=== PATIENT | male | born 1935 | race Caucasian/White ===

== ENCOUNTER 2018-01-27 16:35 | Emergency (ER) | payer MEDICARE, OTHER ==
[~2018-01-27] VITALS: Ht 175.3 cm; Wt 76.2 kg
[~2018-01-27 16:35] MED LIST: ACETAMINOPHEN325 M1 GT; ACIDOPHILUS1 EAC1 GT; AFRIN30 ML; ALBUTEROL0.63 MG/3 NEB; ARICEPT5 MG GT; ATARAX GT; ATIVAN1 MG GT; BACID GT; BENADRYL25 M1 GT; BENZTROPINE MESY1 MG GT; CARAFATE1 GM/10 ML GT; CARAFATE1 GM/10 ML PO; CARBIDOPA-LEVO1 EAC5 PO; CARBIDOPA-LEVO1 EACH GT; CLARITIN-D 241 EACH GT; CLARITIN-D 241 EACH PEG; DULCOLAX SUPP10 MG RC; DUONEB INH; HYDROXYZINE HCL25 MG GT; LAMICTAL100 MG GT; LASIX20 MG GT; LORATADINE10 MG GT; MAALOX ADVANCE770 ML GT; MILK OF MA2400 MG/10 GT; MIRALAX17 GM GT; MYRBETRIQ50 MG GT; NAMENDA10 MG GT; NASAL SPRAY ORI30 ML NS; NEURONTIN100 MG GT; NYSTATIN1 EAC1 TOP; OXYBUTYNIN CHLOR5 MG GT; PANTOPRAZOLE SO40 MG PEG; PAXIL10 MG GT; PLAVIX75 MG GT; PRAVASTATIN SOD40 MG GT; PROSCAR5 MG GT; PROSTAT GT; PROTONIX40 MG GT; REGLAN5 MG GT; SEROQUEL50 MG GT; SINEMET 10-1001 EACH PEG; SINEMET 25-1001 EACH GT; SYNTHROID100 MCG GT; TAMSULOSIN HCL0.4 MG GT; TRAZODONE HCL50 MG GT; TRIHEXYPHENIDYL2 MG GT; ULTRAM 50MG50 MG GT; VALIUM5 MG GT; ZOFRAN ODT4 MG GT; ZYRTEC10 M3 GT
--- NOTE | 2018-01-27 19:00 | Diagnostic Imaging Report ---
PROCEDURE: CT ABDOMEN AND PELVIS WITHOUT CONTRAST TECHNIQUE: The abdomen and pelvis were scanned utilizing a multidetector helical scanner from the diaphragm to the lesser trochanter per physician request. Coronal and sagittal multiplanar reformations were obtained. COMPARISON: CT abdomen pelvis 05/21/2017 INDICATIONS: LEFT HIP SWELLING/PAIN FINDINGS: ABSENCE OF INTRAVENOUS CONTRAST DECREASES SENSITIVITY FOR DETECTION OF FOCAL LESIONS AND VASCULAR PATHOLOGY. LOWER THORAX: Bibasilar scarring and findings suggestive of emphysema mild component of interstitial lung disease. Moderate severe coronary artery calcifications. Heart is normal in size. HEPATOBILIARY: No focal hepatic lesions. No biliary ductal dilatation. Cholecystectomy clips. SPLEEN: No splenomegaly. PANCREAS: No focal masses or ductal dilatation. ADRENALS: No adrenal nodules. KIDNEYS/URETERS: No hydronephrosis, stones, or solid mass lesions. 0.6 cm stone in the upper pole of the right kidney is unchanged. Two 1-2 mm stones in the lower pole of the right kidney are new. 2 abutting stones for total size of 0.5 cm in the posterior interpolar region the left kidney is unchanged. New 0.1 cm stone in the lower pole of the left kidney. PELVIC ORGANS/BLADDER: Unremarkable. PERITONEUM / RETROPERITONEUM: No free air or fluid. LYMPH NODES: No lymphadenopathy. Mild aaron mesentery, which is unchanged with several lymph nodes measuring up to 0.7 cm (series 2 image 36). VESSELS: Severe atherosclerotic calcifications in aorta. Focal ectasia measuring 2.4 cm.. GI TRACT: Percutaneous gastrostomy tube in place. No distention or wall thickening. Liquid stool material throughout the entire colon, likely diarrhea. BONES AND SOFT TISSUES: Moderate degenerative use in the lower lumbar spine especially at L4-5 and L5-S1, unchanged. Right total hip arthroplasty. Unremarkable left hip. IMPRESSION: 1. Bilateral nonobstructing renal stones. 2. Liquid stool in the colon. 3. No acute abnormalities identified. Dictated by: Alphonso Monsivais M.D. on 01/27/2018 at 19:00 Electronically approved by: Alphonso Monsivais M.D. on 01/27/2018 at 19:00
--- NOTE | 2018-01-27 19:02 | Diagnostic Imaging Report ---
PROCEDURE:CT OF LT HIP WO CONTRAST COMPARISON:None. INDICATIONS:LEFT HIP SWELLING/PAIN FINDINGS:Mild degenerative changes in left hip. Diffuse osteopenia. No joint effusion. No loose joint bodies. No fractures. CONCLUSION:Mild degenerative changes in the left hip. Otherwise unremarkable left hip. Dictated by: Alphonso Monsivais M.D. on 01/27/2018 at 19:03 Electronically approved by: Alphonso Monsivais M.D. on 01/27/2018 at 19:03
--- NOTE | 2018-01-27 19:23 | Diagnostic Imaging Report ---
EXAM: Scrotal Ultrasound with Duplex INDICATION: \S\testicular swelling \S\[id number] \S\1837 \S\Y COMPARISON: CT 08/19/2016 TECHNIQUE: Transverse and longitudinal images were obtained of the scrotum with grayscale imaging, color Doppler and spectral waveform analysis. FINDINGS: Right testis: Size: 2.8 x 2 x 2.7 cm, normal in size. Echogenicity: Normal Mass/Cysts: None Left testis: Size: 3 x 2 x 2.3 cm, normal in size. Echogenicity: Normal Mass/Cysts: None Epididymis: Appearance: Normal in size without increased vascularity. Mass/Cysts: None. Mildly heterogeneous right epididymis. Extratesticular: Masses: None Hydrocele: Mild to moderate right hydrocele. Varicocele: None No evidence of hernia. Doppler: Normal arterial flow to both testes and symmetrical flow on color Doppler evaluation is seen. No evidence of testicular torsion. IMPRESSION: 1. No evidence of testicular torsion. 2. Mild to moderate right hydrocele. Signed by: Dr. Alexander Callaway MD on 01/27/2018 7:19 PM
--- NOTE | 2018-01-27 19:23 | Diagnostic Imaging Report ---
EXAM: Scrotal Ultrasound with Duplex INDICATION: \S\testicular swelling \S\[id number] \S\1837 \S\Y COMPARISON: CT 08/19/2016 TECHNIQUE: Transverse and longitudinal images were obtained of the scrotum with grayscale imaging, color Doppler and spectral waveform analysis. FINDINGS: Right testis: Size: 2.8 x 2 x 2.7 cm, normal in size. Echogenicity: Normal Mass/Cysts: None Left testis: Size: 3 x 2 x 2.3 cm, normal in size. Echogenicity: Normal Mass/Cysts: None Epididymis: Appearance: Normal in size without increased vascularity. Mass/Cysts: None. Mildly heterogeneous right epididymis. Extratesticular: Masses: None Hydrocele: Mild to moderate right hydrocele. Varicocele: None No evidence of hernia. Doppler: Normal arterial flow to both testes and symmetrical flow on color Doppler evaluation is seen. No evidence of testicular torsion. IMPRESSION: 1. No evidence of testicular torsion. 2. Mild to moderate right hydrocele. Signed by: Dr. Alexander Callaway MD on 01/27/2018 7:19 PM
[2018-01-27 19:35] LABS: BASOPHILS % 0.4 % (0.0-1.0); EOSINOPHILS # (AUTO) 0.2 (0.0-0.4); EOSINOPHILS % 2.6 % (0.0-6.0); HEMATOCRIT 45.2 % (38.2-49.6); HEMOGLOBIN 14.5 g/dL (14.0-18.0); LYMPHOCYTES # (AUTO) 1.4 (1.0-3.2); LYMPHOCYTES % 18.3 % (18.0-39.1); MEAN CORPUSCULAR HGB CONC 32.1 g/dL (31-35); MEAN CORPUSCULAR VOLUME 96.6 fL (81-99); MONOCYTES # (AUTO) 0.8 (0.2-0.8); MONOCYTES % 10.3 % (4.4-11.3); NEUTROPHILS # (AUTO) 5.1 (2.1-6.9); NEUTROPHILS % 68.3 % (38.7-80.0); PLATELET COUNT 145 x10e3/uL (140-360); RED BLOOD COUNT 4.68 x10e6/uL (4.3-5.7); RED CELL DISTRIBUTION WIDTH 13.6 % (11.7-14.4)
[2018-01-27 19:48] LABS: ANION GAP 11.7 mmol/L (8-16); BLOOD UREA NITROGEN 25 mg/dL (7-26); BUN/CREATININE RATIO 32 (6-25); CALCIUM 9.5 mg/dL (8.4-10.2); CARBON DIOXIDE 31 mmol/L (22-29); CHLORIDE 99 mmol/L (98-107); CREATININE, SERUM 0.79 mg/dL (0.72-1.25); EST GLOMERULAR FILTRATION RATE > 60 ML/MIN (60-); GLUCOSE 89 mg/dL (74-118); POTASSIUM 4.7 mmol/L (3.5-5.1); SODIUM 137 mmol/L (136-145)
[2018-01-27 19:50] LABS: BILIRUBIN,URINE NEGATIVE (NEGATIVE); CLARITY,URINE CLEAR (CLEAR); COLOR,URINE YELLOW (YELLOW); KETONES,URINE NEGATIVE (NEGATIVE); LEUKOCYTE ESTERASE ,URINE 2+ (NEGATIVE); PROTEIN,URINE DIPSTICK NEGATIVE (NEGATIVE); URINE UROBILINOGEN 0.2 mg/dL (0.2 - 1)
[2018-01-27 19:51] LABS: NITRITE,URINE POSITIVE (NEGATIVE)
[2018-01-27 20:02] LABS: BACTERIA,URINE FEW /HPF; EPITHELIAL CELLS,URINE RARE /LPF
[2018-01-27] MEDS ORDERED: CEFTRIAXONE SOD 1 GM VIAL ONE (20:43)
[2018-01-27] MEDS ORDERED: CEFTRIAXONE SOD 1 GM VIAL IM ONE (20:45)
[2018-01-27 21:06] VITALS: BP 114/67
== END 2018-01-27 21:45 | disposition home or self-care (01) ==
LOC: ER 16:35
DX: N50.89 Other specified disorders of the male genital organs (principal); B37.2 Candidiasis of skin and nail; F03.90 Unspecified dementia, unspecified severity, without behavioral disturbance, psychotic disturbance, mood disturbance, and anxiety; M25.552 Pain in left hip
CPT/HCPCS: 36415; 73700; 74176; 76870; 80048; 81001; 85025; 93970; 93976; 99284; J0696

== ENCOUNTER → 2018-05-02 | Outpatient (CLI) | payer MEDICARE, OTHER ==
--- NOTE | 2018-05-02 17:30 | Diagnostic Imaging Report ---
EXAM: CT Abdomen and Pelvis WITHOUT contrast INDICATION: \S\[id number] \S\1534 \S\RENAL CALCULUS COMPARISON: CT dated 01/27/2018 TECHNIQUE: Abdomen and pelvis were scanned utilizing a multidetector helical scanner from the lung base to the pubic symphysis without administration of IV contrast. Absence of intravenous contrast decreases sensitivity for detection of focal lesions and vascular pathology. Coronal and sagittal reformations were obtained. Renal stone protocol was performed. IV CONTRAST: None ORAL CONTRAST: Water COMPLICATIONS: None RADIATION DOSE: Total DLP: 642.8 mGy*cm Estimated effective dose: (DLP x 0.015 x size factor) mSv CTDIvol has been reviewed. It is below the limits set by the Radiation Protocol Committee (RPC). FINDINGS: LINES and TUBES: Percutaneous gastrostomy tube in place. LOWER THORAX: Atherosclerotic calcification of the visualized coronary arteries. Increased peripheral reticulonodular lung markings, likely fibrotic changes. HEPATOBILIARY: Calcified granulomas. Otherwise unenhanced liver is unremarkable. No biliary ductal dilation. GALLBLADDER: Surgically absent. SPLEEN: No splenomegaly. PANCREAS: No focal masses or ductal dilatation. Fatty involution of the pancreas. ADRENALS: No adrenal nodules KIDNEYS/URETERS: No hydronephrosis. No cystic or solid mass lesions. 7 mm right superior pole calculus. There are also punctate right inferior pole calculi (series 41, images 66 and 67). Punctate left inferior pole calculus (401/74). 4 mm left midpole calculus. GI TRACT: No abnormal distention, wall thickening, or evidence of bowel obstruction. Appendix is normal. Large colonic stool burden, suggestive of constipation. PELVIC ORGANS/BLADDER: Unremarkable. Streak artifacts from right hip prosthesis limits evaluation. LYMPH NODES: No lymphadenopathy. Nonspecific subcentimeter retroperitoneal lymph nodes. For example 0.9 cm aortocaval lymph node (series 3, image 91). VESSELS: There is moderate atherosclerotic disease in the aorta and major arterial branches. Focally ectatic areas of infrarenal abdominal aorta measuring 2.3 cm (series 3, image 107) and 2.5 cm (series 3, image 119). PERITONEUM / RETROPERITONEUM: No free air or fluid. BONES: Generalized demineralization limits evaluation. Right hip arthroplasty. Degenerative changes of spine. SOFT TISSUES: Unremarkable. Bilateral gynecomastia. IMPRESSION: 1. Bilateral subcentimeter nonobstructive renal calculi, not significantly changed from prior exam. Signed by: Dr. Alexander Callaway MD on 05/02/2018 5:27 PM
== END ==
LOC: CT 15:23
PROVIDERS: ATTEND Urology
DX: N20.0 Calculus of kidney (principal); N20.1 Calculus of ureter
CPT/HCPCS: 74176

== ENCOUNTER → 2018-08-05 | Day surgery (SDC) | payer MEDICARE ==
[~2018-08-05] MED LIST changes: +BENADRYL25 M1; +DEXAMETHASONE SOD PHOS INJ 4 MG/ML VIAL ONE; +EPHEDRINE SULFATE INJ 50 MG/10 ML SYR ONE; +FENTANYL CITRATE/PF 100MCG/2 ML INJ ONE; +GENTAMICIN 80MG/NS 100 ML 200 ML IV ONE; +LIDOCAINE HCL 2% LOCAL INJ 5 ML SDV VIAL INJ ONE; +ONDANSETRON HCL INJ 2 MG/ML VIAL ONE; +PRAVASTATIN SOD40 MG; +PROPOFOL IV EMULSION 10 MG/ML 20 ML VIAL ONE; +SEVOFLURANE INHAL SOLN 250 ML PEN BTL ONE; +TERAZOSIN HCL5 MG PO; +TYLENOL
[2018-08-05 10:25] LABS: BASOPHILS % 0.6 % (0.0-1.0); EOSINOPHILS # (AUTO) 0.2 (0.0-0.4); EOSINOPHILS % 3.3 % (0.0-6.0); HEMATOCRIT 45.6 % (38.2-49.6); HEMOGLOBIN 14.5 g/dL (14.0-18.0); LYMPHOCYTES % 19.7 % (18.0-39.1); MEAN CORPUSCULAR HEMOGLOBIN 30.8 pg (28-32); MEAN CORPUSCULAR HGB CONC 31.8 g/dL (31-35); MEAN CORPUSCULAR VOLUME 96.8 fL (81-99); MONOCYTES # (AUTO) 0.6 (0.2-0.8); NEUTROPHILS # (AUTO) 3.3 (2.1-6.9); NEUTROPHILS % 64.2 % (38.7-80.0); PLATELET COUNT 113 x10e3/uL (140-360); RED BLOOD COUNT 4.71 x10e6/uL (4.3-5.7); RED CELL DISTRIBUTION WIDTH 14.9 % (11.7-14.4)
[2018-08-05 10:49] LABS: ANION GAP 12.4 mmol/L (8-16); BLOOD UREA NITROGEN 23 mg/dL (7-26); BUN/CREATININE RATIO 29 (6-25); CALCIUM 9.8 mg/dL (8.4-10.2); CARBON DIOXIDE 29 mmol/L (22-29); CHLORIDE 104 mmol/L (98-107); CREATININE, SERUM 0.79 mg/dL (0.72-1.25); EST GLOMERULAR FILTRATION RATE > 60 ML/MIN (60-); GLUCOSE 103 mg/dL (74-118); POTASSIUM 4.4 mmol/L (3.5-5.1); SODIUM 141 mmol/L (136-145)
--- NOTE | 2018-08-05 12:37 | Diagnostic Imaging Report ---
PROCEDURE: Frontal and lateral views of the chest. COMPARISON: None. INDICATIONS: PRE OP FOR ESWL FINDINGS: Lines/tubes: None. Lungs: Low lung volumes. Bilateral perihilar and interstitial opacities. Patchy left basilar opacity. Pleura: There is no pleural effusion or pneumothorax. Heart and mediastinum: Mild enlargement of the cardiomediastinal silhouette. Bones: No acute bony abnormality. IMPRESSION: Findings consistent with moderate pulmonary interstitial edema. Patchy opacity at the left lung base, likely atelectasis. Dictated by: KAMARI SUÁREZ M.D. on 08/05/2018 at 11:06 Electronically approved by: KAMARI SUÁREZ M.D. on 08/05/2018 at 11:06
--- NOTE | 2018-08-05 12:37 | Diagnostic Imaging Report ---
PROCEDURE:X-RAY ABDOMEN - KUB COMPARISON: CT Abdomen/Pelvis 05/02/18. INDICATIONS:PRE OP ESWL FINDINGS: Bilateral renal stones are noted measuring up to 7 mm on the right and 4 mm on the left, better characterized on CT from 05/02/18. Non-obstructive bowel gas pattern. Gastrostomy tube is noted. Status post cholecystectomy. Diffuse osteopenia. Partially seen right total hip arthroplasty. Severe left hip degenerative changes. No acute bony findings. CONCLUSION: Bilateral renal stones measuring up to 7 mm on the right. Dictated by: KAMARI SUÁREZ M.D. on 08/05/2018 at 11:16 Electronically approved by: KAMARI SUÁREZ M.D. on 08/05/2018 at 11:16
[2018-08-05 14:45] VITALS: BP 152/94
--- OUTSIDE RECORDS SUMMARY | 2018-08-16 11:07 | XMS REPORT ---
Author Author [facility] Address Unknown Phone Unavailable Care Team Providers Care F[employer] Dispenser Name Role Phone SIMRAN BUTLER Unavailable Unavailable SONIA JENKINS Unavailable Unavailable Problems This patient has no known problems. Allergies, Adverse Reactions, Alerts This patient has no known allergies or adverse reactions. Medications This patient has no known medications. Results Test Description Test Time Test Comments Text Results Atomic Results Result Comments ABDOMEN-1VIEW (KUB) 2018-08-05 11:16:00 [place] [address] Patient Name: FER MYERS MR #: [id number] : 1935 Age/Sex: 83/M Req #: [id number] Adm Physician: Ordered by: SIMRAN BUTLER MD Report #: [id number] Location: OR Room/Bed: Procedure: [id number] DX/ABDOMEN-1VIEW (KU) Exam Date: 08/05/18 Exam Time: 1009 REPORT STATUS: Signed PROCEDURE: X-RAY ABDOMEN - KUB COMPARISON: CT Abdomen/Pelvis 05/02/18. INDICATIONS: PRE OP ESWL FINDINGS: Bilateral renal stones are noted measuring up to 7 mm on the right and 4 mm on the left, better characterized on CT from 05/02/18. Non-obstructive bowel gas pattern. Gastrostomy tube is noted. Status post cholecystectomy. Diffuse osteopenia. Partially seen right total hip arthroplasty. Severe left hip degenerative changes. No acute bony findings. CONCLUSION: Bilateral renal stones measuring up to 7 mm on the right. Dictated by: KAMARI SUÁREZ M.D. on 08/05/2018 at 11:16 Electronically approved by: KAMARI SUÁREZ M.D. on 08/05/2018 at 11:16 Dictated By: KAMARI SUÁREZ MD 1116 Transcribed By: MIYA on 08/05/18 1116 COPY TO: SIMRAN BUTLER MD CHEST 2 VIEWS 2018-08-05 11:06:00 [place] [address] Patient Name: FER MYERS MR #: [id number] : 1935 Age/Sex: 83/M Req #: [id number] Adm Physician: Ordered by: SIMRAN BUTLER MD Report #: [id number] Location: OR Room/Bed: Procedure: [id number] DX/CHEST 2 VIEWS Exam Date: 08/05/18 Exam Time: 1009 REPORT STATUS: Signed PROCEDURE: Frontal and lateral views of the chest. COMPARISON: None. INDICATIONS: PRE OP FOR ESWL FINDINGS: Lines/tubes: None. Lungs: Low lung volumes. Bilateral perihilar and interstitial opacities. Patchy left basilar opacity. Pleura: There is no pleural effusion or pneumothorax. Heart and mediastinum: Mild enlargement of the cardiomediastinal silhouette. Bones: No acute bony abnormality. IMPRESSION: Findings consistent with moderate pulmonary interstitial edema. Patchy opacity at the left lung base, likely atelectasis. Dictated by: KAMARI SUÁREZ M.D. on 08/05/2018 at 11:06 Electronically approved by: KAMARI SUÁREZ M.D. on 08/05/2018 at 11:06 Dictated By: KAMARI SUÁREZ MD 05 Transcribed By: MIYA on 08/05/181105 COPY TO: SIMRAN BUTLER MD CT ABDOMEN/PELVIS WO 2018-05-02 17:09:00 [place] [address] Patient Name: FER MYERS MR #: [id number] : 1935 Age/Sex: 83/M Req #: [id number] Adm Physician: Ordered by: SIMRAN BUTLER MD Report #: [id number] Location: CT Room/Bed: Procedure: [id number] CT/CT ABDOMEN/PELVIS WO Exam Date: 05/02/18 Exam Time: 1534 REPORT STATUS: Signed EXAM: CT Abdomen and Pelvis WITHOUT contrast INDICATION: COMPARISON: CT dated 01/27/2018 TECHNIQUE: Abdomen and pelvis were scanned utilizing a multidetector helical scanner from the lung base to the pubic symphysis without administration of IV contrast. Absence of intravenous contrast decreases sensitivity for detection of focal lesions and vascular pathology. Coronal and sagittal reformations were obtained. Renal stone protocol was performed. IV CONTRAST: None ORAL CONTRAST: Water COMPLICATIONS: None RADIATION DOSE: Total DLP: 642.8 mGy*cm Estimated effective dose: (DLP x 0.015 x size factor) mSv CTDIvol has been reviewed. It is below the limits set by the Radiation Protocol Committee (RPC). FINDINGS: LINES and TUBES: Percutaneous gas trostomy tube in place. LOWER THORAX: Atherosclerotic calcification of the visualized coronary arteries. Increased peripheral reticulonodular lung markings, likely fibrotic changes. HEPATOBILIARY: Calcified granulomas. Otherwise unenhanced liver is unremarkable. No biliary ductal dilation. GALLBLADDER: Surgically absent. SPLEEN: No splenomegaly. PANCREAS: No focal masses or ductal dilatation. Fatty involution of the pancreas. ADRENALS: No adrenal nodules KIDNEYS/URETERS: No hydronephrosis. No cystic or solid mass lesions. 7 mm right superior pole calculus. There are also punctate right inferior pole calculi (series 41, images 66 and 67). Punctate left inferior pole calculus (401/74). 4 mm left midpole calculus. GI TRACT: No abnormal distention, wall thickening, or evidence of bowel obstruction. Appendix is normal. Large colonic stool burden, suggestive of constipation. PELVIC ORGANS/BLADDER: Unremarkable. Streak artifacts from right hip prosthesis limits evaluation. LYMPH NODES: No lymphadenopathy. Nonspecific subcentimeter retroperitoneal lymph nodes. For example 0.9 cm aortocaval lymph node (series 3, image 91). VESSELS: There is moderate atherosclerotic disease in the aorta and major arterial branches. Focally ectatic areas of infrarenal abdominal aorta measuring 2.3 cm (series 3, image 107) and 2.5 cm (series 3, image 119). PERITONEUM / RETROPERITONEUM: No free air or fluid. BONES: Generalized demineralization limits evaluation. Right hip arthroplasty. Degenerative changes of spine. SOFT TISSUES: Unremarkable. Bilateral gynecomastia. IMPRESSION: 1. Bilateral subcentimeter nonobstructive renal calculi, not significantly changed from prior exam. Signed by: Dr. Alexander Raman MD on 05/02/2018 5:27 PM Dictated By: ALEXANDER RAMAN MD 26 Transcribed By: LISETTE on 05/02/181726 COPY TO: SIMRAN BUTLER MD CT ABDOMEN/PELVIS [place] [address] Patient Name: FER MYERS MR #: [id number] : 1935 Age/Sex: 83/M Req #: [id number] Adm Physician: Ordered by: SONIA JENKINS MD Report #: [id number] Location: ER Room/Bed: Procedure: [id number] CT/CT ABDOMEN/PELVIS WO Exam Date: 01/27/18 Exam Time: 1820 REPORT STATUS: Signed PROCEDURE: CT ABDOMEN AND PELVIS WITHOUT CONTRAST TECHNIQUE: The abdomen and pelvis were scanned utilizing a multidetector helical scanner from the diaphragm to the lesser trochanter per physician request. Coronal and sagittal multiplanar reformations were obtained. COMPARISON: CT abdomen pelvis 05/21/2017 INDICATIONS: LEFT HIP SWELLING/PAIN FINDINGS: ABSENCE OF INTRAVENOUS CONTRAST DECREASES SENSITIVITY FOR DETECTION OF FOCAL LESIONS AND VASCULAR PATHOLOGY. LOWER THORAX: Bibasilar scarring and findings suggestive of emphysema mild component of interstitial lung disease. Moderate severe coronary artery calcifications. Heart is normal in size. HEPATOBILIARY: No focal hepatic lesions. No biliary ductal dilatation. Cholecystectomy clips. SPLEEN: No splenomegaly. PANCREAS: No focal masses or ductal dilatation. ADRENALS: No adrenal nodules. KIDNEYS/URETERS: No hydronephrosis, stones, or solid mass lesions. 0.6 cm stone in the upper pole of the right kidney is unchanged. Two 1-2 mm stones in the lower pole of the right kidney are new. 2 abutting stones for total size of 0.5 cm in the posterior interpolar region the left kidney is unchanged. New 0.1 cm stone in the lower pole of the left kidney. PELVIC ORGANS/BLADDER: Unremarkable. PERITONEUM / RETROPERITONEUM: No free air or fluid. LYMPH NODES: No lymphadenopathy. Mild aaron mesentery, which is unchanged with several lymph nodes measuring up to 0.7 cm (series 2 image 36). VESSELS: Severe atherosclerotic calcifications in aorta. Focal ectasia measuring 2.4 cm.. GI TRACT: Percutaneous gastrostomy tube in place. No distention or wall thickening. Liquid stool material throughout the entire colon, likely diarrhea. BONES AND SOFT TISSUES: Moderate degenerative use in the lower lumbar spine especially at L4-5 and L5-S1, unchanged. Right total hip arthroplasty. Unremarkable left hip. IMPRESSION: 1. Bilateral nonobstructing renal stones. 2. Liquid stool in the colon. 3. No acute abnormalities identified. Dictated by: Yakelin Seymour M.D. on 01/27/2018 at 19:00 Electronically approved by: Yakelin Seymour M.D. on 01/27/2018 at 19:00 Dictated By: YAKELIN SEYMOUR MD 99 Transcribed By: MIYA on 01/27/181899 COPY TO: SONIA JENKINS MD CT HIP LEFT WO [place] [address] Patient Name: FER MYERS MR #: [id number] : 1935 Age/Sex: 83/M Req #: [id number] Adm Physician: Ordered by: SONIA JENKINS MD Report #: [id number] Location: ER Room/Bed: Procedure: [id number] CT/CT HIP LEFT WO Exam Date: 01/27/18 Exam Time: 1820 REPORT STATUS: Signed PROCEDURE: CT OF LT HIP WO CONTRAST COMPARISON: None. INDICATIONS: LEFT HIP SWELLING/PAIN FINDINGS: Mild degenerative changes in left hip. Diffuse osteopenia. No joint effusion. No loose joint bodies. No fractures. CONCLUSION: Mild degenerative changes in the left hip. Otherwise unremarkable left hip. Dictated by: Yakelin Seymour M.D. on 01/27/2018 at 19:03 Electronically approved by: Yakelin Seymour M.D. on 01/27/2018 at 19:03 Dictated By: YAKELIN SEYMOUR MD 02 Transcribed By: MIYA on 01/27/181902 COPY TO: SONIA JENKINS MD US TESTICULAR [place] [id number] [place] [address] Patient Name: FER MYERS MR #: [id number] : 1935 Age/Sex: 83/M Req #: [id number] Adm Physician: Ordered by: SONIA JENKINS MD Report #: [id number] Location: ER Room/Bed: Procedure: [id number] US/US TESTICULAR Exam Date: 01/27/18 Exam Time: 1837 REPORT STATUS: Signed EXAM: Scrotal Ultrasound with Duplex INDICATION: COMPARISON: CT 08/19/2016 TECHNIQUE: Transverse and longitudinal images were obtained of the scrotum with grayscale imaging, color Doppler and spectral waveform analysis. FINDINGS: Right testis: Size: 2.8 x 2 x 2.7 cm, normal in size. Echogenicity: Normal Mass/Cysts: None Left testis: Size: 3 x 2 x 2.3 cm, normal in size. Echogenicity: Normal Mass/Cysts: None Epididymis: Appearance: Normal in size without increased vascularity. Mass/Cysts: None. Mildly heterogeneous right epididymis. Extratesticular: Masses: None Hydrocele: Mild to moderate right hydrocele. Varicocele: None No evidence of hernia. Doppler: Normal arterial flow to both testes and symmetrical flow on color Doppler evaluation is seen. No evidence of testicular torsion. IMPRESSION: 1. No evidence of testicular torsion. 2. Mild to moderate right hydrocele. Signed by: Dr. Alexander Raman MD on 01/27/2018 7:19 PM Dictated By: ALEXANDER RAMAN MD 18 Transcribed By: LISETTE on 01/27/181918 COPY TO: SONIA JENKINS MD US TESTICULAR DOPPLER LTD [place] [id number] [place] [address] Patient Name: FER MYERS MR #: [id number] : 1935 Age/Sex: 83/M Req #: [id number] Adm Physician: Ordered by: SONIA JENKINS MD Report #: [id number] Location: ER Room/Bed: Procedure: [id number] US/US TESTICULAR DOPPLER LTD Exam Date: 01/27/18 Exam Time: 1837 REPORT STATUS: Signed EXAM: Scrotal Ultrasound with Duplex INDICATION: COMPARISON: CT 08/19/2016 TECHNIQUE: Transverse and longitudinal images were obtained of the scrotum with grayscale imaging, color Doppler and spectral waveform analysis. FINDINGS: Right testis: Size: 2.8 x 2 x 2.7 cm, normal in size. Echogenicity: Normal Mass/Cysts: None Left testis: Size: 3 x 2 x 2.3 cm, normal in size. Echogenicity: Normal Mass/Cysts: None Epididymis: Appearance: Normal in size without increased vascularity. Mass/Cysts: None. Mildly heterogeneous right epididymis. Extratesticular: Masses: None Hydrocele: Mild to moderate right hydrocele. Varicocele: None No evidence of hernia. Doppler: Normal arterial flow to both testes and symmetrical flow on color Doppler evaluation is seen. No evidence of testicular torsion.
--- NOTE | 2018-09-13 02:44 | Operative Report ---
DATE OF PROCEDURE: August 05, 2018 PREOPERATIVE DIAGNOSIS: Nephrolithiasis. POSTOPERATIVE DIAGNOSIS: Nephrolithiasis. OPERATIONS PERFORMED 1. Staged right-sided extracorporeal shock wave lithotripsy. 2. Supervision of fluoroscopy. No radiologist present. ANESTHESIA: General. COMPLICATIONS: None. CLINICAL SUMMARY: Destin Carroll is an 83-year-old man with recurrent urolithiasis, who is brought for the above procedures. Family is aware of the risks of bleeding, infection, injury to adjacent structures, need for additional procedures and elected to proceed. OPERATIVE PROCEDURE IN DETAIL: Informed consent was verified. Destin Carroll was properly identified, taken to the operating room, placed on the lithotripsy table in supine position. Anesthesia was uneventfully begun. The right lower pole and right upper pole stones were localized with biplanar fluoroscopy. Total of 3000 shocks were delivered with fragmentation noted. The patient was then uneventfully reversed from anesthesia and taken to recovery room in stable condition. There were no complications during the procedure. He tolerated the procedure well. Explicit postoperative instructions were given. We will return the patient to the operating room for another ESWL, left versus right. Job#: [id number] ARABELLA
== END | disposition home or self-care (01) ==
LOC: OR 09:36
PROVIDERS: ATTEND Urology
DX: N20.0 Calculus of kidney (principal); N40.0 Benign prostatic hyperplasia without lower urinary tract symptoms; R32 Unspecified urinary incontinence; R56.9 Unspecified convulsions; F03.90 Unspecified dementia, unspecified severity, without behavioral disturbance, psychotic disturbance, mood disturbance, and anxiety; G20 Parkinson's disease; I50.9 Heart failure, unspecified; E03.9 Hypothyroidism, unspecified; K21.9 Gastro-esophageal reflux disease without esophagitis; K44.9 Diaphragmatic hernia without obstruction or gangrene; R00.1 Bradycardia, unspecified; K27.9 Peptic ulcer, site unspecified, unspecified as acute or chronic, without hemorrhage or perforation; Z74.01 Bed confinement status; Z88.8 Allergy status to other drugs, medicaments and biological substances; Z88.6 Allergy status to analgesic agent; Z91.011 Allergy to milk products; Z79.02 Long term (current) use of antithrombotics/antiplatelets; Z86.73 Personal history of transient ischemic attack (TIA), and cerebral infarction without residual deficits; Z87.01 Personal history of pneumonia (recurrent); Z87.891 Personal history of nicotine dependence
CPT/HCPCS: 36415; 50590; 71046; 74018; 80048; 83970; 84550; 85025; 93005; J1100; J1580; J2001; J2405

== ENCOUNTER → 2018-11-16 | Day surgery (SDC) | payer MEDICARE ==
[~2018-11-16] MED LIST changes: +BELLADONNA/OPIUM 30 MG SUPP RC ONE; -DEXAMETHASONE SOD PHOS INJ 4 MG/ML VIAL ONE; -EPHEDRINE SULFATE INJ 50 MG/10 ML SYR ONE; +FAMOTIDINE20 MG PO; -FENTANYL CITRATE/PF 100MCG/2 ML INJ ONE; +GENTAMICIN 80MG/NS 100 ML 100 ML IV ONE; -GENTAMICIN 80MG/NS 100 ML 200 ML IV ONE; +IOPAMIDOL 610MG/1ML 300 MG/ML VIAL IV ONE; +LACTULOSE20 GM/30 M PO; +METOCLOPRAM5 MG/5 ML; +MIRALAX17 GM; -ONDANSETRON HCL INJ 2 MG/ML VIAL ONE; +ONDANSETRON ODT8 MG; +PIPER-TAZ 3.375 GM 50 ML ONE; +PROBIOTIC & AC1 EACH; +ULTRAM50 MG PO
[2018-11-16 05:39] LABS: BASOPHILS # (AUTO) 0.1 (0.0-0.1); BASOPHILS % 0.9 % (0.0-1.0); EOSINOPHILS # (AUTO) 0.3 (0.0-0.4); EOSINOPHILS % 4.8 % (0.0-6.0); HEMATOCRIT 42.7 % (38.2-49.6); HEMOGLOBIN 13.9 g/dL (14.0-18.0); LYMPHOCYTES # (AUTO) 1.8 (1.0-3.2); MEAN CORPUSCULAR HEMOGLOBIN 30.3 pg (28-32); MEAN CORPUSCULAR HGB CONC 32.6 g/dL (31-35); MONOCYTES # (AUTO) 0.6 (0.2-0.8); MONOCYTES % 9.9 % (4.4-11.3); NEUTROPHILS # (AUTO) 3.2 (2.1-6.9); NEUTROPHILS % 54.1 % (38.7-80.0); PLATELET COUNT 155 x10e3/uL (140-360); RED BLOOD COUNT 4.59 x10e6/uL (4.3-5.7); RED CELL DISTRIBUTION WIDTH 15.3 % (11.7-14.4)
[2018-11-16 05:54] LABS: ANION GAP 13.2 mmol/L (8-16); BLOOD UREA NITROGEN 30 mg/dL (7-26); BUN/CREATININE RATIO 39 (6-25); CALCIUM 8.8 mg/dL (8.4-10.2); CARBON DIOXIDE 31 mmol/L (22-29); CHLORIDE 99 mmol/L (98-107); CREATININE, SERUM 0.76 mg/dL (0.72-1.25); EST GLOMERULAR FILTRATION RATE > 60 ML/MIN (60-); GLUCOSE 88 mg/dL (74-118); POTASSIUM 4.2 mmol/L (3.5-5.1); SODIUM 139 mmol/L (136-145)
--- NOTE | 2018-11-16 07:30 | Diagnostic Imaging Report ---
Exam: KUB-2 views. Clinical History: Preoperative. Comparison: KUB 08/05/[address] abdomen/pelvis 05/02/2018. Findings: Bilateral renal stones are noted measuring up to 7 mm on the right and 4 mm on the left, better characterized on CT from 05/02/2018. Nonobstructive bowel gas pattern. Gastrostomy tube is noted. Status post cholecystectomy. There is diffuse osteopenia. Partially seen findings from right total hip arthroplasty. Severe left hip degenerative changes. No acute bony findings. Impression: Similar appearance of bilateral renal stones, measuring up to 7 mm on the right. Signed by: Dr. Aminah Burdick MD on 11/16/2018 7:26 AM
[2018-11-16 10:30] VITALS: BP 120/57
--- NOTE | 2018-11-16 12:45 | Operative Report ---
DATE OF PROCEDURE: November 16, 2018 PREOPERATIVE DIAGNOSES 1. Left nephrolithiasis. 2. Urinary tract infections. POSTOPERATIVE DIAGNOSES 1. Left nephrolithiasis. 2. Urinary tract infections. 3. Bladder stones. OPERATIONS PERFORMED: Note these are all staged procedures as part of a multistage, multistep process of managing the patient's urolithiasis: 1. Left-sided extracorporeal shock-wave lithotripsy (separate procedure performed for the nephrolithiasis). 2. Cystourethroscopy with bilateral ureteral catheterization and retrograde ureteropyelography (separate procedure performed for the urinary tract infections). 3. Interpretation of retrograde ureteropyelography. 4. Cystourethroscopy with cystolitholapaxy (separate procedure performed for the patient's bladder stones). ANESTHESIA: General. COMPLICATIONS: None. CLINICAL SUMMARY: Destin Carroll is an 83-year-old man with urinary tract infections and recurrent stones. The patient underwent a right ESWL several months ago. On KUB today we cannot visualize those stones. He has residual stones that we did not previously treat on the left-hand side, and he is brought for management. The family is aware of the risks of bleeding, infection, injury to adjacent structures, need for additional procedures and elected to proceed. OPERATIVE PROCEDURE IN DETAIL: Informed consent was verified. Destin Carroll was properly identified, taken to the operating room and placed on the lithotripsy table in the supine position. Anesthesia was uneventfully begun. The patient's left lower pole nephrolithiasis was localized with biplanar fluoroscopy. Total of 3000 shocks were delivered with excellent fragmentation. The patient was then carefully and gently repositioned in a modified dorsal lithotomy position with the limitations of his contractures. His genitalia were prepared and draped in the usual sterile fashion. The 22.5-Grenadian cystoscope sheath with the visual obturator in place was atraumatically inserted in the patient's urethra. It was guided down the unremarkable urethra, past a normal sphincteric region, through the prostate bed which was wide open status post the previous transurethral resection procedure that we performed in the past. We entered the patient's bladder which exhibited diffuse small stones throughout the bladder and some debris as well. No suspicious mucosal lesions were identified. We utilized a grasper to fragment some of the larger of the stone fragments. Then we flushed out all the stone debris. The bladder now was completely clean of any debris and any stone material. There were no suspicious lesions. There were no tumors. A ureteral catheter was used to cannulate each ureter, and retrograde ureteropyelograms were performed. Interpretation of retrograde ureteropyelography: Contrast was instilled in a retrograde fashion bilaterally. There was no hydronephrosis present. The left side exhibited some filling defects in the lower pole region where we performed the lithotripsy as we expect to have blood clots and stone debris following ESWL. Unobstructed drainage was observed bilaterally fluoroscopically. The patient's bladder was drained. The cystoscope was withdrawn. Belladonna and opium suppository was placed revealing a prostate that was at least 40 grams in size, smooth and nonfluctuant without any nodules. Patient was then uneventfully reversed from anesthesia and taken to the recovery room in stable condition. There were no complications. The patient tolerated the procedure well. Explicit postoperative instructions were given. We will follow the patient up in the office. Job#: [id number]
== END | disposition home or self-care (01) ==
LOC: OR 05:06
PROVIDERS: ATTEND Urology
DX: N20.0 Calculus of kidney (principal); N39.0 Urinary tract infection, site not specified; N21.0 Calculus in bladder; G20 Parkinson's disease; F02.80 Dementia in other diseases classified elsewhere, unspecified severity, without behavioral disturbance, psychotic disturbance, mood disturbance, and anxiety; I50.9 Heart failure, unspecified; E03.9 Hypothyroidism, unspecified; K21.9 Gastro-esophageal reflux disease without esophagitis; K27.9 Peptic ulcer, site unspecified, unspecified as acute or chronic, without hemorrhage or perforation; Z88.6 Allergy status to analgesic agent; Z88.8 Allergy status to other drugs, medicaments and biological substances; Z91.09 Other allergy status, other than to drugs and biological substances; Z93.1 Gastrostomy status; Z74.01 Bed confinement status; Z79.02 Long term (current) use of antithrombotics/antiplatelets; Z87.01 Personal history of pneumonia (recurrent); Z86.73 Personal history of transient ischemic attack (TIA), and cerebral infarction without residual deficits; Z87.891 Personal history of nicotine dependence
CPT/HCPCS: 36415; 50590; 52317; 74018; 80048; 85025; C1758; J1580; J2001; J2543; J2704; Q9967

== ENCOUNTER → 2019-03-15 | Outpatient (CLI) | payer MEDICARE, OTHER ==
[~2019-03-15] MED LIST changes: -BELLADONNA/OPIUM 30 MG SUPP RC ONE; -GENTAMICIN 80MG/NS 100 ML 100 ML IV ONE; -IOPAMIDOL 610MG/1ML 300 MG/ML VIAL IV ONE; -LIDOCAINE HCL 2% LOCAL INJ 5 ML SDV VIAL INJ ONE; -PIPER-TAZ 3.375 GM 50 ML ONE; -PROPOFOL IV EMULSION 10 MG/ML 20 ML VIAL ONE; -SEVOFLURANE INHAL SOLN 250 ML PEN BTL ONE
--- NOTE | 2019-03-15 08:55 | Diagnostic Imaging Report ---
Abdomen, 2 views. History: Renal stones. Comparison: 11/16/2018 KUB and 05/02/2018 CT abdomen and pelvis Findings: The intestinal gas pattern is nonobstructive. G-tube overlies the left upper quadrant. There no masses. Calcification overlies the upper pole of the right kidney (any stones present are better visualized on the prior CT). There is extensive degenerative joint space narrowing involving the left hip. Right hip prosthesis partially visualized. IMPRESSION: No acute abdominal abnormality. Signed by: Dr. Jasper Goldstein DO on 03/15/2019 8:52 AM
== END ==
LOC: RAD 08:03
PROVIDERS: ATTEND Urology
DX: N20.0 Calculus of kidney (principal)
CPT/HCPCS: 74018

== ENCOUNTER 2020-01-30 12:23 | Inpatient (IN) | payer MEDICARE ==
[~2020-01-30] VITALS: Ht 175.3 cm; Wt 69.9 kg
[2020-01-30] VITALS (22 sets, daily range): BP systolic 76–172; BP diastolic 41–141
[2020-01-30] MEDS ORDERED: SODIUM CHLORIDE 0.9% 1000ML 1,000 ML IV STA (12:30)
[2020-01-30] MEDS ORDERED: DILTIAZEM HCL 5 MG/ML 5 ML VIAL IV STA ×3 (12:47→13:50)
[2020-01-30] MEDS ORDERED: DILTIAZEM HCL VIAL 5 ML ONE (13:07)
--- NOTE | 2020-01-30 13:07 | NUR ---
second dose 2.5mg cardizeme iv push, er md in room with patient at this time.
[2020-01-30 13:19] LABS: CLARITY,URINE CLEAR (CLEAR); COLOR,URINE YELLOW (YELLOW); LEUKOCYTE ESTERASE ,URINE NEGATIVE (NEGATIVE); NITRITE,URINE NEGATIVE (NEGATIVE)
[2020-01-30 13:20] LABS: BILIRUBIN,URINE NEGATIVE (NEGATIVE); KETONES,URINE NEGATIVE (NEGATIVE); PROTEIN,URINE DIPSTICK TRACE (NEGATIVE); URINE UROBILINOGEN 0.2 mg/dL (0.2 - 1)
[2020-01-30 13:20] LABS: BASOPHILS # (AUTO) 0.1 (0.0-0.1); BASOPHILS % 0.3 % (0.0-1.0); EOSINOPHILS # (AUTO) 1.4 (0.0-0.4); EOSINOPHILS % 7.3 % (0.0-6.0); HEMATOCRIT 38.5 % (38.2-49.6); HEMOGLOBIN 12.7 g/dL (14.0-18.0); LYMPHOCYTES # (AUTO) 0.7 (1.0-3.2); LYMPHOCYTES % 3.6 % (18.0-39.1); MEAN CORPUSCULAR HEMOGLOBIN 32.2 pg (28-32); MEAN CORPUSCULAR VOLUME 97.7 fL (81-99); MONOCYTES # (AUTO) 0.9 (0.2-0.8); MONOCYTES % 4.6 % (4.4-11.3); NEUTROPHILS # (AUTO) 15.5 (2.1-6.9); NEUTROPHILS % 83.5 % (38.7-80.0); PLATELET COUNT 159 x10e3/uL (140-360); RED BLOOD COUNT 3.94 x10e6/uL (4.3-5.7); RED CELL DISTRIBUTION WIDTH 15.9 % (11.7-14.4)
[2020-01-30 13:23] LABS: INR 1.12; PARTIAL THROMBOPLASTIN TIME 33.1 seconds (23.8-35.5); PROTHROMBIN TIME 15.1 seconds (11.9-14.5)
[2020-01-30 13:26] LABS: ALBUMIN 2.3 g/dL (3.5-5.0); ALBUMIN/GLOBULIN RATIO 0.6 (0.8-2.0); ANION GAP 14.1 mmol/L (8-16); CREATININE, SERUM 1.19 mg/dL (0.72-1.25); MAGNESIUM 2.1 MG/DL (1.3-2.1); POTASSIUM 4.1 mmol/L (3.5-5.1)
[2020-01-30 13:33] LABS: BACTERIA,URINE FEW /HPF; EPITHELIAL CELLS,URINE FEW /LPF; RBC,URINE 0-5 /HPF (0-5)
[2020-01-30 13:34] LABS: TRANSITIONAL EPI CELLS,URINE FEW
[2020-01-30 13:46] LABS: CREATINE KINASE MB 1.6 ng/mL (0-5.0); THYROID STIMULATING HORMONE 1.553 uIU/mL (0.350-4.940)
[2020-01-30] MEDS ORDERED: ATORVASTATIN CA10 MG PEG (13:46)
[2020-01-30] MEDS ORDERED: DILTIAZEM HCL 100 ML IV SCH (14:30)
[2020-01-30] MEDS ORDERED: DILTIAZEM HCL 125 MG in SODIUM CHLORIDE 0.9% 100 ML IV SCH (15:00)
--- NOTE | 2020-01-30 15:11 | Diagnostic Imaging Report ---
EXAMINATION: CHEST SINGLE (PORTABLE) INDICATION: Dehydration COMPARISON: Chest radiograph 08/05/2028 FINDINGS: LINES/TUBES:EKG leads overlie the chest. LUNGS:Lung volumes are low. Extensive bilateral interstitial and airspace opacities. There is perihilar fullness and indistinctness of the pulmonary vasculature. PLEURA:No pleural effusion or pneumothorax. MEDIASTINUM:The cardiomediastinal silhouette appears normal in size and shape. BONES/SOFT TISSUES:No acute osseous injury. ABDOMEN:No free air under the diaphragm. IMPRESSION: Extensive bilateral interstitial and airspace opacities. Interstitial and airspace edema or alternatively multifocal infection could both present with this appearance. Signed by: Denisha Blanca MD on 01/30/2020 3:07 PM
[2020-01-30] MEDS ORDERED: AZITHROMYCIN 500MG/NS 250 ML 250 ML IV STA (15:13)
[2020-01-30] MEDS ORDERED: CEFTRIAXONE SOD 1 GM/NS 50 ML 50 ML IV STA (15:13)
[2020-01-30] MEDS ORDERED: IOPAMIDOL 370 MG/ML 200 ML INFUS..BTL INJ ONE (15:23)
[2020-01-30] MEDS ORDERED: SODIUM CHLORIDE 0.9% 50ML 50 ML ONE (15:23)
--- NOTE | 2020-01-30 15:38 | Diagnostic Imaging Report ---
EXAM: CT Abdomen and Pelvis WITH intravenous contrast INDICATION: Weakness, hernia tract infection COMPARISON: Chest radiograph of earlier the same day. TECHNIQUE: Abdomen and pelvis were scanned utilizing a multidetector helical scanner from the lung base to the pubic symphysis after administration of IV contrast. Coronal and sagittal reformations were obtained. Routine protocol was performed. Scan was performed during portal venous phase. IV CONTRAST: 100mL of Isovue 370 ORAL CONTRAST: Water RADIATION DOSE: Total DLP: 648 mGy*cm Dose modulation, iterative reconstruction, and/or weight based adjustment of the mA/kV was utilized to reduce the radiation dose to as low as reasonably achievable. FINDINGS: LOWER THORAX: Small bilateral pleural effusions. Bibasilar dependent subsegmental atelectasis. Bibasilar interlobular septal thickening consistent with interstitial pulmonary edema. HEPATOBILIARY: Diffuse hepatic steatosis. Status post partial hepatectomy. No focal liver lesion. No biliary ductal dilation. Status post cholecystectomy. SPLEEN: No splenomegaly. PANCREAS: No focal masses or ductal dilatation. ADRENALS: No adrenal nodules. KIDNEYS/URETERS: No hydronephrosis, stones, or solid mass lesions. Right greater than left perinephric fat stranding. PELVIC ORGANS/BLADDER: Evaluation limited by streak artifact related to right hip replacement hardware. PERITONEUM / RETROPERITONEUM: No free air or fluid. LYMPH NODES: No lymphadenopathy. VESSELS: Moderate atherosclerotic calcifications of the nonaneurysmal abdominal aorta and major branches. GI TRACT: No abnormal bowel thickening. No bowel obstruction. Percutaneous gastrostomy tube in place. BONES AND SOFT TISSUES: Diffuse osteopenia. No acute osseous injury. No suspicious lytic or blastic lesions. Status post right total hip replacement. IMPRESSION: Small bilateral pleural effusions and pulmonary interstitial edema. Bibasilar dependent subsegmental atelectasis. Right greater than left perinephric fat stranding is nonspecific but can be seen in the setting of urinary tract infection. Signed by: Denisha Blanca MD on 01/30/2020 3:34 PM
--- NOTE | 2020-01-30 16:00 | NUR ---
moved patient to er4 and placed on droplet isolation due to suspision of covid-19. patient swabbed per protocol.
[2020-01-30] MEDS ORDERED: DIGOXIN INJ 0.25 MG/ML 2 ML AMP IV ONE (17:15)
[2020-01-30] MEDS ORDERED: DILTIAZEM HCL IV SOLN 125 MG in SODIUM CHLORIDE 0.9% 100 ML IV SCH (18:00)
[2020-01-30] MEDS ORDERED: ENOXAPARIN SODIUM INJ 100 MG/ML SYR SC SCH (19:55)
[2020-01-30] MEDS: SODIUM CHLORIDE 0.9% 1000ML 1,000 ML IV SCH (20:00)
[2020-01-30] MEDS: DILTIAZEM HCL 125 ML IV SCH ×2 (20:30→22:00)
[2020-01-30] MEDS ORDERED: ACETAMINOPHEN 325 MG TAB PEG PRN (21:15)
[2020-01-30] MEDS ORDERED: AMIODARONE HCL 150 MG/100 ML BAG IV SCH (21:45)
[2020-01-30] MEDS ORDERED: ALBUTEROL SULF 0.083% NEB SOLN 3 ML NEB NEB PRN (21:45)
[2020-01-30] MEDS ORDERED: POLYETHYLENE GLYCOL 3350 17 GM PACK GT PRN (21:45)
[2020-01-30] MEDS ORDERED: DIAZEPAM 5 MG TAB PEG PRN (21:45)
[2020-01-30] MEDS ORDERED: ONDANSETRON HCL INJ 2MG/ML 2ML 2 MG/ML VIAL IV PRN (22:00)
[2020-01-30] MEDS: CARBIDOPA/LEVODOPA 25/100 TAB PO SCH (22:00)
[2020-01-30] MEDS: VANCOMYCIN 1GM/NS 250 ML 250 ML IV SCH (22:00)
--- NOTE | 2020-01-30 22:01 | Consultation ---
DATE OF CONSULTATION: Critical Care Consultation REASON FOR CONSULT: ICU management. HISTORY OF PRESENT ILLNESS: An 85-year-old male with advanced Parkinson disease. The patient is baseline aphasic, does not talk, does not communicate, was brought in by because of tachycardia. We have seen the patient at [facility] multiple times. He has been tested for COVID because his white cell count was 18,000 and he was febrile. The patient is unable to give me any history. Source of history is the chart. The patient's chest x-ray done in the emergency room showed bilateral interstitial airspace opacities. REVIEW OF SYSTEMS: Unable to elicit any because of the patient's mental status. PAST MEDICAL HISTORY: Advanced Parkinson disease, dementia, bed-bound status, PEG tube status. FAMILY AND SOCIAL HISTORY: Lives with . No smoking in the past. PHYSICAL EXAMINATION: VITAL SIGNS: Temperature 98.1, pulse of 160, respiratory rate is 22, O2 saturation 99%. HEENT: Head atraumatic, normocephalic. The patient is aphasic, noncommunicative. Moves his arms. CHEST: Reduced air entry and crackles. HEART: S1, S2 audible. ABDOMEN: Soft with PEG tube. EXTREMITIES: No pedal edema. LABORATORY DATA: Reviewed, white count of 18,000. Chemistries reviewed. EKG, atrial fibrillation/flutter. ASSESSMENT: Mr. Carroll is an 85-year-old male. He came in with leukocytosis, fever, and tachycardia. COVID testing has been done per ER. I think the patient has chronic aspiration and that is why he has aspiration pneumonitis. PLAN: Continue antibiotics. Management of atrial fibrillation per Cardiology. I will review the ABG. Currently, the patient is saturating 94% on 4 L nasal cannula, and his respiratory rate is between 18 to 22. I will also start the patient on IV amiodarone infusion. Critical care time spent 50 minutes. MD PATRICIA Avitia/MODL /[id number]
--- NOTE | 2020-01-30 22:03 | NUR ---
2109- Spoke to Dr. Liu regarding patient condition- tachypnea/shallow breathing. New orders received. Per MD, hold TF for tonight. 2110- Left message with answering service of Dr. Ruano regarding pt condition. 2114- Dr. Ruano rounding. New orders received. 2199- ABG results read back to Dr. Ruano. Per MD, no need for intubation at this time. MD also notified of HR 81- per MD, do not give amio bolus ordered.
[2020-01-30] MEDS ORDERED: ALBUTEROL SULFATE HFA 8GM INHALATION AEROSOL INH PRN (22:45)
[2020-01-30 23:07] LABS: CREATINE KINASE MB 1.6 ng/mL (0-5.0)
[2020-01-31] VITALS (43 sets, daily range): BP systolic 83–116; BP diastolic 41–73
[2020-01-31] MEDS: PIPER-TAZ 3.375 GM 50 ML IV SCH ×4 (00:11→17:46)
[2020-01-31] MEDS: DILTIAZEM HCL 125 ML IV SCH ×2 (00:30→03:00)
[2020-01-31] MEDS: LEVOTHYROXINE SODIUM 100 MCG TAB GT SCH (05:07)
[2020-01-31] MEDS: DIPHENHYDRAMINE HCL 25 MG CAP PEG SCH ×3 (05:09→21:24)
[2020-01-31] MEDS: SODIUM CHLORIDE 0.9% 1000ML 1,000 ML IV SCH ×3 (05:09→17:48)
[2020-01-31 05:41] LABS: BASOPHILS % 0.3 % (0.0-1.0); EOSINOPHILS # (AUTO) 0.6 (0.0-0.4); EOSINOPHILS % 3.4 % (0.0-6.0); HEMATOCRIT 38.6 % (38.2-49.6); HEMOGLOBIN 12.2 g/dL (14.0-18.0); LYMPHOCYTES # (AUTO) 0.6 (1.0-3.2); MEAN CORPUSCULAR HEMOGLOBIN 31.8 pg (28-32); MEAN CORPUSCULAR HGB CONC 31.6 g/dL (31-35); MEAN CORPUSCULAR VOLUME 100.5 fL (81-99); NEUTROPHILS # (AUTO) 13.7 (2.1-6.9); NEUTROPHILS % 85.5 % (38.7-80.0); PLATELET COUNT 154 x10e3/uL (140-360); RED BLOOD COUNT 3.84 x10e6/uL (4.3-5.7); RED CELL DISTRIBUTION WIDTH 16.3 % (11.7-14.4)
[2020-01-31 06:04] LABS: CREATINE KINASE MB 1.3 ng/mL (0-5.0)
[2020-01-31 06:37] LABS: ALBUMIN 1.8 g/dL (3.5-5.0); ALBUMIN/GLOBULIN RATIO 0.5 (0.8-2.0); ALKALINE PHOSPHATASE 107 IU/L (40-150); ANION GAP 12.1 mmol/L (8-16); BLOOD UREA NITROGEN 44 mg/dL (7-26); BUN/CREATININE RATIO 36 (6-25); CALCIUM 8.1 mg/dL (8.4-10.2); CARBON DIOXIDE 27 mmol/L (22-29); CHLORIDE 105 mmol/L (98-107); CREATININE, SERUM 1.21 mg/dL (0.72-1.25); EST GLOMERULAR FILTRATION RATE 57 ML/MIN (60-); GLUCOSE 104 mg/dL (74-118); POTASSIUM 4.1 mmol/L (3.5-5.1); SODIUM 140 mmol/L (136-145)
[2020-01-31 06:38] LABS: ALANINE AMINOTRANSFERASE < 6 IU/L (0-55)
[2020-01-31] MEDS ORDERED: FUROSEMIDE 20 MG TAB GT SCH (09:00)
[2020-01-31] MEDS: CARBIDOPA/LEVODOPA 25/100 TAB PO SCH ×3 (09:15→21:24)
[2020-01-31] MEDS: LAMOTRIGINE 100 MG TAB GT SCH ×3 (09:15→17:49)
[2020-01-31] MEDS: TERAZOSIN HCL 1 MG CAP PO SCH (09:15)
[2020-01-31] MEDS: CLOPIDOGREL BISULFATE 75 MG TAB GT SCH (09:15)
[2020-01-31] MEDS: NYSTATIN 15 GM POWDER UD BTL TOP SCH ×2 (09:15→17:00)
[2020-01-31] MEDS: LORATADINE/PSEUDOEPHEDRINE 24 HR SR TAB PO SCH (09:15)
[2020-01-31] MEDS: GABAPENTIN 100 MG CAP GT SCH ×3 (09:15→21:24)
--- NOTE | 2020-01-31 09:15 | NUR ---
Notified Dr. Buckley regarding patient's low BP and his medication order for Hytrin 25mg. Received order to administer medication. Addendum: 01/31/20 at 1026 by Jacqui Murray RN Hytrin 1 mg.
[2020-01-31] MEDS: VANCOMYCIN 1GM/NS 250 ML 250 ML IV SCH ×2 (09:39→21:24)
--- NOTE | 2020-01-31 11:08 | History and Physical ---
CHIEF COMPLAINT: Shortness of breath. HISTORY OF PRESENT ILLNESS: An 85-year-old male patient with history of advanced Parkinson disease, dysphagia, PEG feeding, brought to the emergency room with shortness of breath, hypoxemic, tachycardia, tachypneic. The patient admitted to the intensive care unit with an impending respiratory failure. PAST MEDICAL HISTORY: Advanced Parkinson's, dementia, dysphagia, kidney stones, CVA, hypertension, depression, BPH, hyperlipidemia, history of TB, treated in the past, and diabetes mellitus. ALLERGIES: MORPHINE, DEXILANT, NITROGLYCERIN, PHENERGAN, PNEUMOVAX, ZANTAC, MILK. SURGICAL HISTORY: G-tube placement and bronchoscopies. PERSONAL HISTORY: No history of smoking, alcohol, or drugs. He stopped smoking 50 years back. MEDICATIONS: Levothyroxine 100 mcg daily, Sinemet, hydroxyzine, Benadryl, Plavix, trazodone, tramadol, Valium, pantoprazole. REVIEW OF SYSTEMS: Limited. The patient cannot communicate. PHYSICAL EXAMINATION: VITAL SIGNS: Blood pressure 85/47, pulse 79, blood pressure 86/47, temperature 98. HEAD AND ENT: Normal. NECK: No JVD. LUNGS: Diminished air entry at the bases. CVS: Normal. ABDOMEN: Soft. PEG tube in place. EXTREMITIES: Lower extremities, no edema. Contracted. LABORATORY DATA: The patient had a CT of the abdomen, small bilateral effusion, pulmonary interstitial edema. Chest x-ray, extensive bilateral interstitial airspace opacities, airspace edema. ASSESSMENT: Hypertension, pneumonia, sepsis, impending respiratory failure, advanced Parkinson disease. PLAN: We will keep on antibiotic. Pulmonary and infectious disease consultation. Resume home medication. MD CAROLYNE Pool/ANNITAL /[id number]
[2020-01-31 14:32] LABS: ABG HCO3 28 mmol/L (23-28); ABG PCO2 36 mmHg (41-51); ABG PH 7.49 (7.31-7.41)
--- NOTE | 2020-01-31 14:44 | NUR ---
Nutrition Intervention Note RD Recommendation(s) for Physician: - Recommend TF of Glucerna 1.2 at 20 ml/hr, advance as tolerated to goal rate of 60 ml/hr (to provide 1728 kcal and 86 gm protein). - Water flushes and fluid management per MD - Recommend checking Prealbumin with next lab draw Plan of Care: RD following, monitoring for tolerance and adequacy Nutrition reason for involvement: Nutrition Risk Trigger RD Assessment 01/30: 85 YOM admitted for hypotension and SOB, evaluated today per MST screen. Unable to obtain hx from pt 2/2 dementia and severe Parkinson's and unable to enter pt room per current isolation protocol for PUI. Pt with PEG on admit, on Diabetasource EN CLINICAL NURSING DIRECTOR per chart. Per RN pt on Diabetasource at 60 ml/hr with a total of 1000 ml free water flushes per day. providing TF from home currently, TF rec's reviewed with RN. Chart reviewed. Will continue to monitor. Principal Problems/Diagnoses: hypotension, shortness of breath, hypoxemia, tachycardia PMH: advanced Parkinson's, dementia, dysphagia, kidney stones, CVA, hypertension, depression, hyperlipidemia, DM GI: LBM 01/30 Skin: R foot- unstagable PU Labs: 01/30: Na 140, K 4.1, BUN 44, Cr 1.21, Gluc 104, Alb 1.8 Meds: sinemet, gabapentin, abx, lasix, synthroid, zofran, miralax, lipitor Ht: 69 in Wt: 148.38 lb BMI: 21.9 kg/m2 IBW: 160 lb Malnutrition Evaluation (01/31/20) The patient does not meet criteria for a specified degree of malnutrition at this time. Will re-evaluate at follow-up as appropriate. Unable to assess. Energy intake: TF prior to admit Weight loss: Unable to assess, no wt hx available Fat loss: unable to evaluate Muscle loss: unable to evaluate Supporting Evidence: Fluid accumulation: unable to evaluate Functional Status: unable to evaluate Nutrition Prescription (Diet Order): no order Estimated Nutritional Needs: 2130-7922 calories/day (25-30 kcal/kg CBW) 67-101 g protein/day (1-1.5 g pro/kg CBW) Diet Adequacy: Not meeting calorie needs, Not meeting protein needs Diet Tolerance: pending Diet Education Needs Assessment: Diet education not indicated, pt TF dependent. Nutrition Care Level: Mod Nutrition Diagnosis: Inadequate energy and protein intake related to PEG on admit as evidenced by requiring EN. Goal: Patient will meet 75-100% of estimated needs by follow up Progress: N/A Interventions: -Composition, Rate, Route, Collaboration with other providers Monitoring/Evaluation: -Total energy intake, Total protein intake, Formula/Solution, Prescription medication Signed: Mireya Treviño RD, LD, CNSC
--- NOTE | 2020-01-31 15:55 | NUR ---
Called Dr. Andrade to notify him of consult. Left message x2.
[2020-01-31] MEDS: AMIODARONE HCL 200 MG TAB PO SCH ×2 (17:00→17:49)
--- NOTE | 2020-01-31 18:45 | NUR ---
Report received. Assumed care. Assessment done. See interventions. IV NS @ 125ml/hr. PEG tube with Diabeta Source 1.2 (from home) @ 60ml/hr with 100ml Q2H H20 flushes.
--- NOTE | 2020-01-31 20:25 | Consultation ---
DATE OF CONSULTATION: 01/31/2020 Cardiology Consultation REQUESTING PHYSICIAN: Dr. Anguiano. REASON FOR CONSULTATION: Atrial flutter with rapid ventricular response. HISTORY OF PRESENT ILLNESS: This is an 85-year-old man with advanced Parkinson disease, dementia, history of CVA, aspiration pneumonia, hyperlipidemia, and hypertension, who was brought to the ER with complaints of hypotension and tachycardia. All history is obtained from the medical record as the patient is aphasic and unresponsive at baseline. Per report the patient's noted the patient was hypotensive in the 70s with heart rates in the 160s. 911 was called and he was brought to the ER for further evaluation. EKG demonstrated atrial flutter with rapid ventricular response and Cardiology was consulted for further evaluation. The patient was given IV diltiazem and IV digoxin and subsequently started on a diltiazem drip. He was admitted to the ICU for further care. Testing in the ER revealed leukocytosis with WBC of 18.57. Chest x-ray demonstrated extensive bilateral interstitial and airspace opacities, interstitial and airspace edema or alternatively multifocal infection could both present with this appearance. The patient was started on IV antibiotics for suspected aspiration pneumonitis. REVIEW OF SYSTEMS: Unable to obtain secondary to baseline mental status. PAST MEDICAL HISTORY: 1. Advanced Parkinson's disease. 2. Dementia. 3. History of CVA. 4. Hypertension. 5. Hyperlipidemia. 6. History of aspiration and dysphagia. 7. Recurrent UTIs. 8. Benign prostatic hypertrophy. PAST SURGICAL HISTORY: 1. PEG. 2. Right hip replacement. ALLERGIES: PLEASE SEE EMR. MEDICATIONS: Please see medication list. SOCIAL HISTORY: Unable to obtain secondary to baseline mental status. FAMILY HISTORY: Noncontributory to current illness. PHYSICAL EXAMINATION: VITAL SIGNS: Temperature 97.4 degrees, pulse 89, respiratory rate 28, blood pressure 92/46, and oxygen saturation 100% on 4 liters nasal cannula. The patient was not otherwise examined due to suspicion for COVID-19. LABORATORY STUDIES: WBC 15.97, hemoglobin 12.2, hematocrit 38.6, and platelets 154. Sodium 140, potassium 4.1, chloride 105, CO2 of 27, BUN 44, and creatinine 1.21. Troponin 0.227. EKG, atrial flutter with rapid ventricular response. IMPRESSION: 1. Atrial flutter with rapid ventricular response, currently converted to sinus rhythm. 2. Pneumonia. 3. Sepsis secondary to above. 4. Advanced Parkinson's disease. 5. Dementia. 6. Acute hypoxic respiratory failure secondary to above. 7. History of aspiration/dysphagia. 8. Hypotension. 9. Hyperlipidemia. RECOMMENDATIONS: The patient has converted to normal sinus rhythm. Continue home cardiac medications. Diltiazem drip has been stopped as the patient is now in normal sinus rhythm. Start p.o. amiodarone to maintain normal sinus rhythm. Given his baseline status as well as comorbid conditions, he is a poor candidate for anticoagulation. Antibiotics per Infectious Disease. Continue supportive care. Monitor the patient on telemetry for recurrence of atrial flutter. Pulmonary reports extensive prior admissions to [facility], we will attempt to obtain echo from that facility. Thank you for this consult. We will continue to follow. MD ELIZABETH Alston/MODL /[id number] MTDEligio
[2020-01-31] MEDS: TRAZODONE HCL 50 MG TAB GT SCH (21:24)
[2020-01-31] MEDS: ATORVASTATIN 10 MG TAB GT SCH (21:24)
[2020-02-01] VITALS (27 sets, daily range): BP systolic 105–153; BP diastolic 54–82
[2020-02-01] MEDS: SODIUM CHLORIDE 0.9% 1000ML 1,000 ML IV SCH (00:51)
[2020-02-01] MEDS: LEVOTHYROXINE SODIUM 100 MCG TAB GT SCH (05:40)
[2020-02-01] MEDS: PIPER-TAZ 3.375 GM 50 ML IV SCH ×3 (05:40→22:00)
[2020-02-01] MEDS: DIPHENHYDRAMINE HCL 25 MG CAP PEG SCH ×3 (05:40→22:00)
--- NOTE | 2020-02-01 06:58 | NUR ---
Report received from Maki Morse RN
--- NOTE | 2020-02-01 07:34 | NUR ---
Notified Dr. Buckley of patients HR being in the 110's - 120's for most of the night. She ordered 12 lead EKG to be done. No other orders received.
[2020-02-01] MEDS: LORATADINE/PSEUDOEPHEDRINE 24 HR SR TAB PO SCH (09:30)
[2020-02-01] MEDS: NYSTATIN 15 GM POWDER UD BTL TOP SCH ×2 (09:30→17:39)
[2020-02-01] MEDS: TERAZOSIN HCL 1 MG CAP PO SCH (09:30)
[2020-02-01] MEDS: CARBIDOPA/LEVODOPA 25/100 TAB PO SCH ×3 (09:30→21:41)
[2020-02-01] MEDS: CLOPIDOGREL BISULFATE 75 MG TAB GT SCH (09:30)
[2020-02-01] MEDS: VANCOMYCIN 1GM/NS 250 ML 250 ML IV SCH ×2 (10:00→21:41)
[2020-02-01] MEDS: FUROSEMIDE INJ 10 MG/ML 2 ML VIAL IV SCH (10:30)
--- NOTE | 2020-02-01 10:35 | NUR ---
PROVIDED NURSE WITH COPY OF LETTER FROM MEDICARE TO PUT IN FOLDER FOR FAMILY DUE TO ISOLATION PRECAUTIONS REPORTED PLAN OF HOME TO ADMIN FOR TRACKING REPORTED FROM NURSE
--- NOTE | 2020-02-01 10:42 | Consultation ---
DATE OF CONSULTATION: 02/01/2020 INFECTIOUS DISEASE CONSULT REASON FOR CONSULTATION: Rule out COVID-19. Thank you, Dr. Jones, for asking me to see this patient. HISTORY OF PRESENT ILLNESS: The patient is an 85-year-old man, who was referred to rule out COVID-19. He was unable to give history due to advanced dementia and there is no family member available at this time for information. The chart review showed that he presented to the emergency department with shortness of breath, tachypnea, tachycardia, hypoxia, and hypotension. There was no mention of fever. In the emergency department, influenza antigen test was negative. ECG showed atrial flutter, but chest x-ray showed multifocal pneumonia and pleural effusion. PAST MEDICAL HISTORY: Diabetes mellitus type 2, hypertension, hyperlipidemia, cerebrovascular accident, hypothyroidism, dysphagia, kidney stones, BPH, advanced Parkinson's dementia, treated tuberculosis, and depression. PAST SURGICAL HISTORY: G-tube placement. ALLERGIES: PNEUMOVAX, MORPHINE, NITROGLYCERIN, PHENERGAN, ZANTAC, AND DEXILANT. MEDICATIONS: See MAR. The current antibiotic is Zosyn 3.375 g IV piggyback q.6 hours. FAMILY HISTORY: Unable to obtain due to severe dementia. SOCIAL HISTORY: He quit smoking cigarettes 50 years ago. No alcohol use. REVIEW OF SYSTEMS: Unable to obtain due to severe dementia. PHYSICAL EXAMINATION: GENERAL: Dyspneic, but comfortable. VITAL SIGNS: T-max 98.4, pulse rate 122, respiratory rate 39, blood pressure 122/65, weight 148 pounds. HEENT: Normocephalic and atraumatic. There is mild injection of the conjunctiva, but no icterus. There is no ear or nasal discharge. Uncooperative with oral and pharyngeal examination. NECK: Supple. No JVD. LUNGS: Decreased breath sounds bilaterally. HEART: Normal S1 and S2. Tachycardic. ABDOMEN: PEG tube site is clean. Soft and nontender. EXTREMITIES: There is no edema, clubbing, or cyanosis. SKIN: There is no acute erythema. 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 LABORATORY AND DIAGNOSTICS: WBC 15,970 down from 18,570 on admission, hemoglobin 12.2, platelet 154, neutrophils 85.5, lymphocytes 4, monocytes 6, eosinophils 3.4, basophils 0.3. BUN 44, creatinine 1.21, AST 18, ALT less than 6, alkaline phosphatase 107, total bilirubin 0.7, troponin 0.254. Blood culture showed no growth. Urine culture is growing gram-negative bacillus. IMPRESSION: 1. Aspiration pneumonia. 2. Sepsis. 3. Impending respiratory failure. 4. Nocturia. PLAN: 1. Change Zosyn to 3.375 g IV piggyback q.8 hours infused over 4 hours. 2. Await SARS-CoV2 PCR. 3. Cardiology input has been noted. MD CALLI Espinosa/MODL /[id number] MTDD
--- NOTE | 2020-02-01 11:32 | Progress Note ---
DATE: 02/01/2020 Cardiology Progress Note SUBJECTIVE: No history could be obtained due to the patient's baseline dementia. Staff reports he is agitated. PHYSICAL EXAMINATION: VITAL SIGNS: Temperature 98.1 degrees, pulse 123, respiratory rate 35, blood pressure 111/73, and oxygen saturation 99% on 4 L nasal cannula. The patient was not otherwise examined. LABORATORY DATA: None today. CARDIAC MEDICATIONS: Lasix 20 mg p.o. daily, terazosin 2 mg p.o. daily, Plavix 75 mg p.o. daily, levothyroxine 100 mcg p.o. daily, atorvastatin 10 mg p.o. at bedtime, amiodarone 200 mg p.o. b.i.d. TELEMETRY: Personally reviewed and interpreted revealing sinus tachycardia. IMPRESSION: 1. Atrial flutter with rapid ventricular response, currently now sinus rhythm. 2. Pneumonia. 3. Sepsis secondary to above. 4. Acute hypoxic respiratory failure secondary to above. 5. Advanced Parkinson disease. 6. Dementia. 7. History of aspiration/dysphagia. 8. Hyperlipidemia. 9. Hypertension. RECOMMENDATIONS: The patient is now in sinus rhythm, although he is tachycardic. Continue amiodarone for rhythm control. Suspect the patient's tachycardia is a physiologic response to current illness. Continue supportive care. Given his baseline status as well as comorbid conditions, he is a poor candidate for anticoagulation. Antibiotics per Infectious disease. Monitor the patient on telemetry for recurrence of atrial flutter. Thank you for this consult. We will continue to follow. Shereen Cooper MD ABS/MODL /[id number] CLIVE
[2020-02-01] MEDS ORDERED: PIPER-TAZ 3.375 GM 50 ML IV SCH (14:00)
[2020-02-01] MEDS: AMIODARONE HCL 200 MG TAB PO SCH (17:39)
[2020-02-01] MEDS: LAMOTRIGINE 100 MG TAB GT SCH (17:40)
--- NOTE | 2020-02-01 18:40 | NUR ---
Report received. Assumed care. Assessment done. See interventions. O2 per NC @ 2L. IV NS @ 5ml/hr. Diabeta Source 1.2 TF @ 60ml/hr with 100ml/hr H20 flushes.
[2020-02-01] MEDS: ATORVASTATIN 10 MG TAB GT SCH (21:41)
[2020-02-01] MEDS: TRAZODONE HCL 50 MG TAB GT SCH (21:41)
[2020-02-02] VITALS (27 sets, daily range): BP systolic 98–168; BP diastolic 42–153
--- NOTE | 2020-02-02 01:00 | NUR ---
Denisha care done and diaper changed.
--- NOTE | 2020-02-02 03:00 | NUR ---
Diaper changed. Deep sleep. Eyes blink with repositioning.
--- NOTE | 2020-02-02 05:54 | NUR ---
Difficult to arouse. Resp rate unchanged. Sats 93%. Call to Dr. Liu. Awaiting call back.
[2020-02-02] MEDS: DIPHENHYDRAMINE HCL 25 MG CAP PEG SCH ×3 (06:00→23:00)
--- NOTE | 2020-02-02 06:50 | NUR ---
Spoke with Dr. Liu. Advised of neuro changes. No new orders.
[2020-02-02] MEDS: PIPER-TAZ 3.375 GM 50 ML IV SCH ×3 (07:07→21:55)
[2020-02-02] MEDS: LEVOTHYROXINE SODIUM 100 MCG TAB GT SCH (07:07)
[2020-02-02] MEDS: LAMOTRIGINE 100 MG TAB GT SCH ×2 (08:12→16:14)
[2020-02-02] MEDS: CLOPIDOGREL BISULFATE 75 MG TAB GT SCH (08:12)
[2020-02-02] MEDS: LORATADINE/PSEUDOEPHEDRINE 24 HR SR TAB PO SCH (08:12)
[2020-02-02] MEDS: FUROSEMIDE INJ 10 MG/ML 2 ML VIAL IV SCH ×2 (08:12→17:03)
[2020-02-02] MEDS: CARBIDOPA/LEVODOPA 25/100 TAB PO SCH ×3 (08:13→23:00)
[2020-02-02] MEDS: TERAZOSIN HCL 1 MG CAP PO SCH (08:13)
[2020-02-02] MEDS: AMIODARONE HCL 200 MG TAB PO SCH ×2 (08:14→16:14)
[2020-02-02] MEDS: VANCOMYCIN 1GM/NS 250 ML 250 ML IV SCH ×2 (10:09→22:00)
[2020-02-02 15:28] LABS: ANION GAP 12.2 mmol/L (8-16); BLOOD UREA NITROGEN 36 mg/dL (7-26); BUN/CREATININE RATIO 46 (6-25); CALCIUM 8.2 mg/dL (8.4-10.2); CARBON DIOXIDE 31 mmol/L (22-29); CHLORIDE 102 mmol/L (98-107); CREATININE, SERUM 0.79 mg/dL (0.72-1.25); EST GLOMERULAR FILTRATION RATE > 60 ML/MIN (60-); GLUCOSE 128 mg/dL (74-118); POTASSIUM 4.2 mmol/L (3.5-5.1); SODIUM 141 mmol/L (136-145)
[2020-02-02] MEDS: NYSTATIN 15 GM POWDER UD BTL TOP SCH (16:14)
[2020-02-02] MEDS ORDERED: FUROSEMIDE INJ 10 MG/ML 2 ML VIAL IV SCH (16:30)
--- NOTE | 2020-02-02 18:23 | Progress Note ---
DATE: 02/02/2020 Cardiology Progress Note SUBJECTIVE: The patient opens eyes, but does not follow commands. Staff report his oxygen requirements have increased. OBJECTIVE: VITAL SIGNS: Temperature 97 degrees, pulse 104, respiratory rate 37, blood pressure 111/52, and oxygen saturation 100% on 10 L nasal cannula. GENERAL: Elderly man, no acute distress. LUNGS: Clear to auscultation bilaterally. No wheezes or crackles. CARDIOVASCULAR: Tachycardic, but regular. No murmur. Normal S1 and S2. ABDOMEN: Soft and nontender. EXTREMITIES: Trace edema. CARDIAC MEDICATIONS: Lasix 20 mg IV daily, amiodarone 200 mg p.o. b.i.d., Plavix 75 mg p.o. daily, levothyroxine 100 mcg p.o. daily, and atorvastatin 10 mg p.o. at bedtime. LABORATORY DATA: Sodium 141, potassium 4.2, chloride 102, CO2 31, BUN 36, and creatinine 0.79. Telemetry was personally reviewed and interpreted, revealing sinus tachycardia. IMPRESSION: 1. Atrial flutter with rapid ventricular response, currently sinus tachycardia. 2. Pneumonia. 3. Sepsis secondary to above. 4. Acute hypoxic respiratory failure. 5. Advanced Parkinson disease. 6. Dementia. 7. History of aspiration/dysphagia. 8. Hyperlipidemia. 9. Hypertension. RECOMMENDATIONS: The patient is tachycardic, but in sinus rhythm, suspect the patient's tachycardia is a physiologic response to current illness. Continue supportive care. Continue amiodarone for rhythm control. Would not add AV pamella blocking agents at this time. Given his baseline status as well as comorbid conditions, he is a poor candidate for anticoagulation. Additional dose of IV Lasix today, as he appears slightly volume overloaded. Antibiotics per Infectious Disease. Monitor the patient on telemetry for recurrence of atrial flutter. Thank you for this consult. We will continue to follow. Shereen Cooper MD ABS/MODL /[id number]
[2020-02-02] MEDS: TRAZODONE HCL 50 MG TAB GT SCH (21:00)
--- NOTE | 2020-02-02 22:15 | NUR ---
Read ABG results to Dr. Silva. Orders received. Rapid response called at 2230 for respiratory distress- pt intubated. Dr. Silva aware. Spoke with Josey (spouse) regarding pt condition and POC.
[2020-02-02] MEDS ORDERED: MIDAZOLAM HCL 5 MG/ML VIAL ONE (22:53)
[2020-02-02] MEDS ORDERED: SODIUM CHLORIDE 0.9% 250ML 250 ML ONE (22:54)
[2020-02-02] MEDS ORDERED: SODIUM CHLORIDE 0.9% 50ML 50 ML ONE (22:54)
[2020-02-02] MEDS: ATORVASTATIN 10 MG TAB GT SCH (23:00)
--- NOTE | 2020-02-02 23:10 | Diagnostic Imaging Report ---
EXAMINATION: CHEST SINGLE (PORTABLE) COMPARISON: Chest x-ray 01/30/2020 INDICATION: Intubation ^S/P ORAL INTUBATION ^[id number] ^2240 DISCUSSION: Frontal view of the chest obtained at 2241 hours. HEART AND MEDIASTINUM: The heart is enlarged. The pulmonary arteries are enlarged. The aorta is tortuous. LINES: Endotracheal tube tip is poorly visualized due to underpenetration of the image LUNGS: No significant change in widespread pulmonary infiltrates and vascular congestion. PLEURA: No large effusions. No pneumothorax. BONES AND SOFT TISSUES: No focal osseous lesion. The soft tissues are normal. IMPRESSION: 1. Endotracheal tube location is poorly visualized due to underpenetration of the image. 2. No significant change in widespread pulmonary infiltrates and vascular congestion. Signed by: Dr. Ezequiel Morton MD on 02/02/2020 11:06 PM
[2020-02-02] MEDS: FENTANYL CITRATE INJ 2,000 MCG in SODIUM CHLORIDE 0.9% 250ML 210 ML IV PRN (23:15)
[2020-02-02] MEDS: MIDAZOLAM HCL 25 MG in SODIUM CHLORIDE 0.9% 50ML 45 ML IV PRN (23:15)
[2020-02-03] VITALS (26 sets, daily range): BP systolic 82–131; BP diastolic 41–115
[2020-02-03 00:33] LABS: ABG HCO3 35 mmol/L (23-28); ABG PCO2 55 mmHg (35-45)
--- NOTE | 2020-02-03 00:33 | Diagnostic Imaging Report ---
EXAMINATION: CHEST SINGLE (PORTABLE) COMPARISON: 2241 hours INDICATION: Intubation ^S/P ORAL INTUBATION DISCUSSION: Frontal view of the chest obtained at 0008 hours. HEART AND MEDIASTINUM: Stable cardiomegaly and aortic tortuosity. LINES: ET tube terminates 1-2 cm above the gonsalo. LUNGS: Stable multifocal infiltrates and vascular congestion. PLEURA: No large effusions or pneumothorax. BONES AND SOFT TISSUES: Stable. Cholecystectomy clips in the right upper quadrant. IMPRESSION: ET terminates 1-2 cm above the gonsalo. No change in pulmonary infiltrates and vascular congestion. Signed by: Dr. Ezequiel Morton MD on 02/03/2020 12:30 AM
--- NOTE | 2020-02-03 01:40 | Diagnostic Imaging Report ---
EXAMINATION: CHEST X-RAY LINE PLACEMENT COMPARISON: Chest x-ray 0008 hours INDICATION: ^S/P PICC LINE INSERTION ^[id number] ^0125 DISCUSSION: Frontal view of the chest obtained at 0121 hours. HEART AND MEDIASTINUM: Stable cardiomegaly and aortic tortuosity. Stable vascular congestion. LINES: Endotracheal tube terminates approximately 2 cm above the gonsalo. Right PICC line terminates in the SVC without pneumothorax. LUNGS: Multifocal infiltrates are redemonstrated. PLEURA: No large effusions. No pneumothorax. BONES AND SOFT TISSUES: Stable. IMPRESSION: Right PICC line terminates in the SVC without pneumothorax. Endotracheal tube as described above. No change in pulmonary infiltrates and vascular congestion. Signed by: Dr. Ezequiel Morton MD on 02/03/2020 1:37 AM
--- NOTE | 2020-02-03 01:55 | NUR ---
Francisco Ruano at 0034. returned call- ABG results read to , new orders received. Addendum: 02/03/20 at 0156 by Evelyn Akbar RN Dr. Silva returned call.
[2020-02-03] MEDS ORDERED: SODIUM CHLORIDE 0.9% 1000ML 250 ML IV ONE (02:15)
[2020-02-03] MEDS: FENTANYL CITRATE INJ 2,000 MCG in SODIUM CHLORIDE 0.9% 250ML 210 ML IV PRN ×2 (05:00→06:16)
[2020-02-03 05:08] LABS: BASOPHILS % 0.4 % (0.0-1.0); EOSINOPHILS # (AUTO) 0.9 (0.0-0.4); EOSINOPHILS % 7.8 % (0.0-6.0); HEMATOCRIT 34.5 % (38.2-49.6); HEMOGLOBIN 10.6 g/dL (14.0-18.0); MEAN CORPUSCULAR HEMOGLOBIN 31.4 pg (28-32); MEAN CORPUSCULAR HGB CONC 30.7 g/dL (31-35); MEAN CORPUSCULAR VOLUME 102.1 fL (81-99); MONOCYTES % 8.7 % (4.4-11.3); NEUTROPHILS # (AUTO) 8.1 (2.1-6.9); NEUTROPHILS % 73.3 % (38.7-80.0); PLATELET COUNT 159 x10e3/uL (140-360); RED BLOOD COUNT 3.38 x10e6/uL (4.3-5.7); RED CELL DISTRIBUTION WIDTH 15.7 % (11.7-14.4)
[2020-02-03 05:26] LABS: ANION GAP 10.9 mmol/L (8-16); BLOOD UREA NITROGEN 36 mg/dL (7-26); BUN/CREATININE RATIO 48 (6-25); CALCIUM 8.4 mg/dL (8.4-10.2); CARBON DIOXIDE 30 mmol/L (22-29); CHLORIDE 105 mmol/L (98-107); CREATININE, SERUM 0.75 mg/dL (0.72-1.25); EST GLOMERULAR FILTRATION RATE > 60 ML/MIN (60-); GLUCOSE 72 mg/dL (74-118); POTASSIUM 3.9 mmol/L (3.5-5.1); SODIUM 142 mmol/L (136-145)
[2020-02-03] MEDS: DIPHENHYDRAMINE HCL 25 MG CAP PEG SCH ×3 (06:00→20:51)
[2020-02-03] MEDS: PIPER-TAZ 3.375 GM 50 ML IV SCH ×3 (06:14→22:00)
[2020-02-03] MEDS: LEVOTHYROXINE SODIUM 100 MCG TAB GT SCH (06:14)
[2020-02-03] MEDS: MIDAZOLAM HCL 25 MG in SODIUM CHLORIDE 0.9% 50ML 45 ML IV PRN ×2 (06:17→19:37)
[2020-02-03] MEDS: AMIODARONE HCL 200 MG TAB PO SCH ×2 (08:25→16:05)
[2020-02-03] MEDS: LAMOTRIGINE 100 MG TAB GT SCH ×2 (08:25→16:05)
[2020-02-03] MEDS: LORATADINE/PSEUDOEPHEDRINE 24 HR SR TAB PO SCH (08:25)
[2020-02-03] MEDS: CLOPIDOGREL BISULFATE 75 MG TAB GT SCH (08:25)
[2020-02-03] MEDS: TERAZOSIN HCL 1 MG CAP PO SCH (08:26)
[2020-02-03] MEDS: CARBIDOPA/LEVODOPA 25/100 TAB PO SCH ×3 (08:26→20:50)
[2020-02-03] MEDS: NYSTATIN 15 GM POWDER UD BTL TOP SCH ×2 (08:26→16:05)
[2020-02-03] MEDS: FUROSEMIDE INJ 10 MG/ML 2 ML VIAL IV SCH (08:27)
[2020-02-03] MEDS: VANCOMYCIN 1GM/NS 250 ML 250 ML IV SCH ×2 (10:00→20:50)
--- NOTE | 2020-02-03 11:10 | Progress Note ---
DATE: Cardiology Progress Note SUBJECTIVE: The patient was intubated overnight. Cannot obtain review of systems. OBJECTIVE: VITAL SIGNS: Temperature is 98.7, heart rate is 104, respirations 16, blood pressure is 94/48, oxygen saturation is 100% on 60% FiO2. GENERAL: He is a chronically ill-appearing elderly man, intubated and sedated. Examination was not performed due to possible COVID positivity pandemic. Other physicians have examined the patient. Telemetry monitoring showed sinus tachycardia. MEDICATIONS: Reviewed. LABORATORY DATA: Reviewed. IMPRESSION: 1. Paroxysmal atrial flutter with rapid ventricular response, currently sinus tachycardia. 2. Pneumonia. 3. Acute respiratory failure with hypoxemia. 4. Advanced Parkinson disease. 5. Dementia. 6. Aspiration. 7. Hypertension, currently hypotensive. RECOMMENDATIONS: Continue amiodarone. He remains tachycardic, however, cannot start AV pamella blockers due to hypotension. If needed, can give intermittent doses of IV digoxin. Respiratory and ventilatory management per primary team at [facility]. We will continue to follow along with you. DO JAHAIRA Kraus/ANNITAL /[id number]
--- NOTE | 2020-02-03 11:16 | Diagnostic Imaging Report ---
EXAM: Abdomen Radiograph 1 View(s) INDICATION: HIGH RESIDUALS COMPARISON: None FINDINGS: There is a gastrostomy tube in place. No change in pulmonary infiltrates and vascular congestion. The bowel loops are unremarkable with no dilatation or signs of obstruction. No pneumoperitoneum. No abnormal abdominal calcifications. No acute osseous abnormality. Right hip arthroplasty is partially seen. IMPRESSION: No acute abdominal radiographic abnormality. Signed by: Garfield Walls MD on 02/03/2020 11:12 AM
[2020-02-03] MEDS ORDERED: SUCCINYLCHOLINE CHLORIDE 20 MG/ML 10ML VIAL ONE (15:48)
[2020-02-03] MEDS ORDERED: ETOMIDATE 2 MG/ML 10 ML INJ IV ONE (15:48)
[2020-02-03] MEDS: TRAZODONE HCL 50 MG TAB GT SCH (19:38)
[2020-02-03] MEDS: HEPARIN SOD (PORCINE) 5,000 UNIT/ML VIAL SC SCH (20:32)
[2020-02-03] MEDS: ATORVASTATIN 10 MG TAB GT SCH (20:34)
[2020-02-04] VITALS (26 sets, daily range): BP systolic 87–112; BP diastolic 46–74
[2020-02-04] MEDS: MIDAZOLAM HCL 25 MG in SODIUM CHLORIDE 0.9% 50ML 45 ML IV PRN (03:30)
[2020-02-04 05:05] LABS: BASOPHILS # (AUTO) 0.1 (0.0-0.1); BASOPHILS % 0.6 % (0.0-1.0); EOSINOPHILS # (AUTO) 1.4 (0.0-0.4); EOSINOPHILS % 13.5 % (0.0-6.0); HEMATOCRIT 31.7 % (38.2-49.6); HEMOGLOBIN 10.3 g/dL (14.0-18.0); LYMPHOCYTES # (AUTO) 1.2 (1.0-3.2); LYMPHOCYTES % 11.5 % (18.0-39.1); MEAN CORPUSCULAR HEMOGLOBIN 31.8 pg (28-32); MEAN CORPUSCULAR HGB CONC 32.5 g/dL (31-35); MEAN CORPUSCULAR VOLUME 97.8 fL (81-99); MONOCYTES # (AUTO) 0.7 (0.2-0.8); MONOCYTES % 6.8 % (4.4-11.3); NEUTROPHILS # (AUTO) 7.1 (2.1-6.9); NEUTROPHILS % 66.8 % (38.7-80.0); PLATELET COUNT 165 x10e3/uL (140-360); RED BLOOD COUNT 3.24 x10e6/uL (4.3-5.7); RED CELL DISTRIBUTION WIDTH 15.5 % (11.7-14.4)
[2020-02-04 05:29] LABS: ANION GAP 10.3 mmol/L (8-16); BLOOD UREA NITROGEN 28 mg/dL (7-26); BUN/CREATININE RATIO 37 (6-25); CALCIUM 8.1 mg/dL (8.4-10.2); CARBON DIOXIDE 31 mmol/L (22-29); CHLORIDE 102 mmol/L (98-107); CREATININE, SERUM 0.75 mg/dL (0.72-1.25); EST GLOMERULAR FILTRATION RATE > 60 ML/MIN (60-); GLUCOSE 83 mg/dL (74-118); POTASSIUM 3.3 mmol/L (3.5-5.1); SODIUM 140 mmol/L (136-145)
--- NOTE | 2020-02-04 05:55 | Diagnostic Imaging Report ---
EXAMINATION: CHEST SINGLE (PORTABLE) COMPARISON: Chest x-ray 02/03/2020 INDICATION: Pneumonia ^pneumonia ^[id number] ^0535 DISCUSSION: Frontal view of the chest obtained at 0530 hours. HEART AND MEDIASTINUM: Stable cardiomegaly and tortuosity. Stable vascular congestion LINES: Endotracheal tube terminates 3 to 4 cm above the gonsalo. Right PICC line terminates in the SVC. LUNGS: Multifocal infiltrates show no significant change. Increasing bibasilar atelectasis. PLEURA: Small pleural effusions. No pneumothorax. BONES AND SOFT TISSUES: No focal osseous lesions. The soft tissues are normal. ABDOMEN: Cholecystectomy clips in the right upper quadrant. IMPRESSION: 1. Support devices as described above. 2. Increasing bibasilar atelectasis. Multifocal infiltrates are stable. 3. Stable cardiomegaly and vascular congestion. Signed by: Dr. Ezequiel Morton MD on 02/04/2020 5:52 AM
[2020-02-04] MEDS: DIPHENHYDRAMINE HCL 25 MG CAP PEG SCH ×3 (06:00→21:05)
[2020-02-04] MEDS: LEVOTHYROXINE SODIUM 100 MCG TAB GT SCH (06:08)
[2020-02-04] MEDS: PIPER-TAZ 3.375 GM 50 ML IV SCH ×3 (06:08→21:04)
[2020-02-04] MEDS: LORATADINE/PSEUDOEPHEDRINE 24 HR SR TAB PO SCH (08:11)
[2020-02-04] MEDS: LAMOTRIGINE 100 MG TAB GT SCH ×2 (08:11→16:06)
[2020-02-04] MEDS: CLOPIDOGREL BISULFATE 75 MG TAB GT SCH (08:11)
[2020-02-04] MEDS: FUROSEMIDE INJ 10 MG/ML 2 ML VIAL IV SCH (08:11)
[2020-02-04] MEDS: AMIODARONE HCL 200 MG TAB PO SCH ×2 (08:11→16:06)
[2020-02-04] MEDS: TERAZOSIN HCL 1 MG CAP PO SCH (08:12)
[2020-02-04] MEDS: CARBIDOPA/LEVODOPA 25/100 TAB PO SCH ×3 (08:12→20:51)
[2020-02-04] MEDS: HEPARIN SOD (PORCINE) 5,000 UNIT/ML VIAL SC SCH ×2 (08:15→21:04)
[2020-02-04] MEDS: NYSTATIN 15 GM POWDER UD BTL TOP SCH ×2 (09:02→16:06)
[2020-02-04] MEDS: VANCOMYCIN 1GM/NS 250 ML 250 ML IV SCH (10:00)
[2020-02-04] MEDS ORDERED: POTASSIUM CHLORIDE 20MEQ/15ML UDC NG ONE (13:00)
--- NOTE | 2020-02-04 14:54 | Progress Note ---
DATE: Cardiology Progress Note SUBJECTIVE: The patient remains intubated. No other events. OBJECTIVE: VITAL SIGNS: Temperature is 99.1, heart rate is 91, respirations are 16, blood pressure is 100/53, and oxygen saturation 100% on 40% FiO2, being mechanically ventilated. GENERAL: He is a chronically ill-appearing elderly man, in no apparent distress. RESPIRATORY: Appear symmetric. No significant edema. CARDIOPULMONARY: Not performed during the COVID- pandemic. CARDIOVASCULAR MEDICATIONS: Reviewed. TELEMETRY: Monitoring revealed sinus tachycardia. LABORATORY DATA: Reviewed. IMPRESSION: 1. Paroxysmal atrial flutter with rapid ventricular response, resolved. 2. Sinus tachycardia. 3. Pneumonia. 4. Acute respiratory failure with hypoxemia. 5. Advanced Parkinson's disease. 6. Dementia. 7. Aspiration. 8. Hypotension. RECOMMENDATIONS: Continue amiodarone. AV pamella blockers have not been started due to hypotension. If needed, can give intermittent doses of IV digoxin. Heart rate appears to be better today. Continue to wean vent settings per [facility]. Overall poor prognosis. Victorino Hauser DO BM/MODL /[id number]
[2020-02-04] MEDS: TRAZODONE HCL 50 MG TAB GT SCH (20:51)
[2020-02-04] MEDS: ATORVASTATIN 10 MG TAB GT SCH (20:51)
[2020-02-05] VITALS (16 sets, daily range): BP systolic 96–132; BP diastolic 46–71
[2020-02-05] MEDS ORDERED: SODIUM CHLORIDE 0.9% 250ML 250 ML ONE (04:58)
[2020-02-05 05:16] LABS: BASOPHILS # (AUTO) 0.1 (0.0-0.1); BASOPHILS % 0.4 % (0.0-1.0); EOSINOPHILS # (AUTO) 2.1 (0.0-0.4); EOSINOPHILS % 15.5 % (0.0-6.0); HEMOGLOBIN 10.4 g/dL (14.0-18.0); LYMPHOCYTES # (AUTO) 1.3 (1.0-3.2); LYMPHOCYTES % 9.4 % (18.0-39.1); MEAN CORPUSCULAR HEMOGLOBIN 31.7 pg (28-32); MEAN CORPUSCULAR HGB CONC 32.5 g/dL (31-35); MEAN CORPUSCULAR VOLUME 97.6 fL (81-99); MONOCYTES # (AUTO) 0.9 (0.2-0.8); MONOCYTES % 6.8 % (4.4-11.3); NEUTROPHILS # (AUTO) 9.1 (2.1-6.9); NEUTROPHILS % 67.2 % (38.7-80.0); PLATELET COUNT 187 x10e3/uL (140-360); RED BLOOD COUNT 3.28 x10e6/uL (4.3-5.7); RED CELL DISTRIBUTION WIDTH 15.3 % (11.7-14.4)
[2020-02-05 05:39] LABS: ANION GAP 12.8 mmol/L (8-16); BLOOD UREA NITROGEN 24 mg/dL (7-26); BUN/CREATININE RATIO 33 (6-25); CALCIUM 8.6 mg/dL (8.4-10.2); CARBON DIOXIDE 31 mmol/L (22-29); CHLORIDE 99 mmol/L (98-107); CREATININE, SERUM 0.73 mg/dL (0.72-1.25); EST GLOMERULAR FILTRATION RATE > 60 ML/MIN (60-); GLUCOSE 114 mg/dL (74-118); POTASSIUM 3.8 mmol/L (3.5-5.1); SODIUM 139 mmol/L (136-145)
[2020-02-05] MEDS: DIPHENHYDRAMINE HCL 25 MG CAP PEG SCH ×3 (05:51→21:46)
[2020-02-05] MEDS: PIPER-TAZ 3.375 GM 50 ML IV SCH ×3 (06:13→21:46)
[2020-02-05] MEDS: LEVOTHYROXINE SODIUM 100 MCG TAB GT SCH (06:13)
[2020-02-05 07:09] LABS: EOSINOPHILS % (MANUAL) 17 % (0-7); LYMPHOCYTES % (MANUAL) 10 % (19-48); MONOCYTES % (MANUAL) 4 % (3.4-9.0); NEUTROPHILS % (MANUAL) 69 % (40-74)
[2020-02-05 07:11] LABS: HYPOCHROMASIA SLIGHT; PLATELET ESTIMATE ADEQUATE; PLATELET MORPHOLOGY COMMENT FEW LARGE; RBC MORPHOLOGY COMMENT NORMAL
[2020-02-05] MEDS: LAMOTRIGINE 100 MG TAB GT SCH ×2 (08:43→17:00)
[2020-02-05] MEDS: FUROSEMIDE INJ 10 MG/ML 2 ML VIAL IV SCH (08:44)
[2020-02-05] MEDS: AMIODARONE HCL 200 MG TAB PO SCH ×2 (08:44→17:00)
[2020-02-05] MEDS: CLOPIDOGREL BISULFATE 75 MG TAB GT SCH (08:44)
[2020-02-05] MEDS: CARBIDOPA/LEVODOPA 25/100 TAB PO SCH ×3 (08:45→21:00)
[2020-02-05] MEDS: HEPARIN SOD (PORCINE) 5,000 UNIT/ML VIAL SC SCH ×2 (08:46→21:00)
[2020-02-05] MEDS: LORATADINE/PSEUDOEPHEDRINE 24 HR SR TAB PO SCH (09:00)
[2020-02-05] MEDS: NYSTATIN 15 GM POWDER UD BTL TOP SCH ×2 (09:15→17:00)
[2020-02-05] MEDS: TERAZOSIN HCL 1 MG CAP PO SCH (10:15)
--- NOTE | 2020-02-05 13:09 | NUR ---
Per patient's , Josey, she wishes to speak with hospice in order to bring her home.
--- NOTE | 2020-02-05 13:53 | NUR ---
SPOKE WITH PT SHE STATES [facility] IS [facility] SO SHE WANTS TO GO WITH THEIR [facility], FILED CHOICE IN CHART FAXED CLINICALS TO [phone]
--- NOTE | 2020-02-05 13:55 | NUR ---
EDUCATED ABOUT IMM, SIGNED, FILED IN CHART, WITH COPY LEFT WITH FAMILY AT BEDSIDE
--- NOTE | 2020-02-05 16:12 | NUR ---
[facility] [phone] FAX IS [phone], REP CELL IS PRECIOUS ESTRADA [phone]
--- NOTE | 2020-02-05 16:54 | NUR ---
Nutrition Intervention Note RD Recommendation(s) for Physician: - Recommend TF of Glucerna 1.2 at 20 ml/hr, advance as tolerated to goal rate of 60 ml/hr (to provide 1728 kcal and 86 gm protein) or please add home TF order to diet order. - Water flushes and fluid management per MD - Recommend checking Prealbumin with next lab draw Plan of Care: RD following, monitoring for tolerance and adequacy Nutrition reason for involvement: Nutrition Risk Trigger RD Assessment 02/04: Follow up. Pt remains intubated, on fentanyl, no pressors. Per RN pt receiving Diabetasource AC at 60 ml/hr per home regimen. Current TF meeting needs. No GI distress reported. Chart reviewed. Will continue to monitor. 01/30: 85 YOM admitted for hypotension and SOB, evaluated today per MST screen. Unable to obtain hx from pt 2/2 dementia and severe Parkinson's and unable to enter pt room per current isolation protocol for PUI. Pt with PEG on admit, on Diabetasource EN [employer] per chart. Per RN pt on Diabetasource at 60 ml/hr with a total of 1000 ml free water flushes per day. providing TF from home currently, TF rec's reviewed with RN. Chart reviewed. Will continue to monitor. Principal Problems/Diagnoses: hypotension, shortness of breath, hypoxemia, tachycardia PMH: advanced Parkinson's, dementia, dysphagia, kidney stones, CVA, hypertension, depression, hyperlipidemia, DM GI: LBM 01/31 Skin: R foot- unstagable PU Labs: 02/04: Na 139, K 3.8, BUN 24, Cr 0.73, Gluc 114 01/30: Na 140, K 4.1, BUN 44, Cr 1.21, Gluc 104, Alb 1.8 Meds: sinemet, abx, lasix, synthroid, zofran, miralax, lipitor, fentanyl Ht: 69 in Wt: 148.38 lb BMI: 21.9 kg/m2 IBW: 160 lb Malnutrition Evaluation (01/31/20) The patient does not meet criteria for a specified degree of malnutrition at this time. Will re-evaluate at follow-up as appropriate. Unable to assess. Energy intake: TF prior to admit Weight loss: Unable to assess, no wt hx available Fat loss: unable to evaluate Muscle loss: unable to evaluate Supporting Evidence: Fluid accumulation: unable to evaluate Functional Status: unable to evaluate Nutrition Prescription (Diet Order): no order- home TF not ordered Estimated Nutritional Needs: 0037-6715 calories/day (25-30 kcal/kg CBW) 67-101 g protein/day (1-1.5 g pro/kg CBW) Diet Adequacy: Not meeting calorie needs, Not meeting protein needs Diet Tolerance: tolerating TF Diet Education Needs Assessment: Diet education not indicated, pt TF dependent. Nutrition Care Level: Mod Nutrition Diagnosis: Inadequate energy and protein intake related to PEG on admit as evidenced by requiring EN. Goal: Patient will meet 75-100% of estimated needs by follow up Progress: progressing Interventions: -Composition, Rate, Route, Collaboration with other providers Monitoring/Evaluation: -Total energy intake, Total protein intake, Formula/Solution, Prescription medication Signed: Mireya Treviño RD, LD, CNSC
[2020-02-05] MEDS: ATORVASTATIN 10 MG TAB GT SCH (21:00)
[2020-02-05] MEDS: TRAZODONE HCL 50 MG TAB GT SCH (21:00)
[2020-02-06] VITALS (11 sets, daily range): BP systolic 94–127; BP diastolic 51–79
--- NOTE | 2020-02-06 | NUR ---
Patient NPO for probable end of life extubation
[2020-02-06] MEDS: DIPHENHYDRAMINE HCL 25 MG CAP PEG SCH (06:18)
[2020-02-06] MEDS: LEVOTHYROXINE SODIUM 100 MCG TAB GT SCH (06:18)
[2020-02-06] MEDS: PIPER-TAZ 3.375 GM 50 ML IV SCH (06:18)
[2020-02-06] MEDS: HEPARIN SOD (PORCINE) 5,000 UNIT/ML VIAL SC SCH (08:22)
[2020-02-06] MEDS: CLOPIDOGREL BISULFATE 75 MG TAB GT SCH (08:24)
[2020-02-06] MEDS: FUROSEMIDE INJ 10 MG/ML 2 ML VIAL IV SCH (08:24)
[2020-02-06] MEDS: LAMOTRIGINE 100 MG TAB GT SCH (08:24)
[2020-02-06] MEDS: AMIODARONE HCL 200 MG TAB PO SCH (08:24)
[2020-02-06] MEDS: NYSTATIN 15 GM POWDER UD BTL TOP SCH (08:25)
[2020-02-06] MEDS: CARBIDOPA/LEVODOPA 25/100 TAB PO SCH (08:25)
[2020-02-06] MEDS: TERAZOSIN HCL 1 MG CAP PO SCH (08:25)
[2020-02-06] MEDS: LORATADINE/PSEUDOEPHEDRINE 24 HR SR TAB PO SCH (08:27)
--- NOTE | 2020-02-06 08:36 | NUR ---
SPOKE WITH HOSPICE ALL PAPERWORK COMPLETED WITH LAST NIGHT, SHE HAS ALL EQUIPMENT, SHE WILL FAX ME THE OOH DNR. SPOKE WITH ADMIN ABOUT EXCEPTION FOR TO BE ABLE TO ATTEND THE END OF LIFE EXTUBATION, IF PT IS ABLE TO TRANSPORT THEN WILL SET UP TRANSPORT HOME. LET [facility] KNOW PLAN AFTER SPEAKING WITH ALL INVOLVED IN CARE.
--- NOTE | 2020-02-06 09:22 | NUR ---
and rn field case manager at bedside; hospice is set up at the home. Plan is to remove the ETT and mechanical ventilation and send patient home to be on hospice care with [facility]. plant production manager brought out of hospital DNAR for purpose of transport. Rec'd order from Dr Ruano to extubate for end of life care.
--- NOTE | 2020-02-06 09:50 | NUR ---
Patient extubated to 2 L NC per order and 's directive.
--- NOTE | 2020-02-06 10:51 | NUR ---
PUT OOH DNR ON PACKET CALLED AND SET UP TRANSPORT TO RETURN HOME, WAS TOLD BY [facility] WILL BE APPROX 30 MINS. GAVE NURSE THE HOSPICE NURSE AND PHONE NUMBER TO CALL AND GIVE REPORT TO JAYDEN [phone], LET HOSPICE KNOW ETA OF BUFFET MANAGER AND THEY WILL MEET AT HOME.
--- NOTE | 2020-02-06 10:55 | Discharge Summary ---
HOSPITAL COURSE: An 85-year-old male patient, history of advanced Parkinson disease, dementia, stroke, admitted with shortness of breath, pneumonia. The patient was treated, COVID negative. The patient was treated with mechanical ventilation after talking to the patient's at length due to advanced dementia and poor prognosis. The patient was extubated and withdrawn life support. He is still awake and breathing. He was accepted by the hospice and will be discharged to home under hospice care. DISCHARGE DIAGNOSES: 1. Aspiration pneumonia. 2. Advanced Parkinson's. 3. Dementia. Discharged with hospice care. MD CAROLYNE Pool/MODL /[id number]
== END 2020-02-06 11:50 | disposition hospice, home (50) | DRG 871 ==
LOC: ER 12:23 → ERHOLD 17:47 → ICU 18:46
PROVIDERS: ADMIT Internal Medicine; ATTEND Internal Medicine
PROC: 5A1945Z Respiratory Ventilation, 24-96 Consecutive Hours (ICD-10-PCS; 2020-02-02)
PROC: 0BH17EZ Insertion of Endotracheal Airway into Trachea, Via Natural or Artificial Opening (ICD-10-PCS; 2020-02-02)
PROC: 02HV33Z Insertion of Infusion Device into Superior Vena Cava, Percutaneous Approach (ICD-10-PCS; principal; 2020-02-03)
PROC: B548ZZA Ultrasonography of Superior Vena Cava, Guidance (ICD-10-PCS; 2020-02-03)
DX: A41.9 Sepsis, unspecified organism (principal); J69.0 Pneumonitis due to inhalation of food and vomit; J96.22 Acute and chronic respiratory failure with hypercapnia; J96.21 Acute and chronic respiratory failure with hypoxia; J15.1 Pneumonia due to Pseudomonas; I48.92 Unspecified atrial flutter; R47.01 Aphasia; N39.0 Urinary tract infection, site not specified; G20 Parkinson's disease; I10 Essential (primary) hypertension; G30.9 Alzheimer's disease, unspecified; F02.80 Dementia in other diseases classified elsewhere, unspecified severity, without behavioral disturbance, psychotic disturbance, mood disturbance, and anxiety; Z86.73 Personal history of transient ischemic attack (TIA), and cerebral infarction without residual deficits; Z87.440 Personal history of urinary (tract) infections; K21.9 Gastro-esophageal reflux disease without esophagitis; E78.5 Hyperlipidemia, unspecified; Z96.641 Presence of right artificial hip joint; Z93.1 Gastrostomy status; N40.0 Benign prostatic hyperplasia without lower urinary tract symptoms; Z91.012 Allergy to eggs; Z88.5 Allergy status to narcotic agent; Z88.7 Allergy status to serum and vaccine; Z88.8 Allergy status to other drugs, medicaments and biological substances; Z91.018 Allergy to other foods; E86.0 Dehydration; Z74.01 Bed confinement status; E11.9 Type 2 diabetes mellitus without complications; E03.9 Hypothyroidism, unspecified; Z87.442 Personal history of urinary calculi; Z87.891 Personal history of nicotine dependence; Z03.818 Encounter for observation for suspected exposure to other biological agents ruled out; B96.5 Pseudomonas (aeruginosa) (mallei) (pseudomallei) as the cause of diseases classified elsewhere
CPT/HCPCS: 31720; 36415; 36569; 36600; 71045; 74018; 74177; 80048; 80053; 80202; 81001; 82550; 82553; 82805; 83605; 83735; 83880; 84443; 84484; 85025; 85610; 85730; 87040; 87070; 87086; 87186; 87205; 87400; 87635; 93005; 94002; 94003; 99251; 99285; J0330; J0456; J0696; J1160; J1644; J1650; J1940; J2250; J2543; J3370; J7030; J7050; Q9967